=== PATIENT | female | born 1960 | race Caucasian/White ===

== ENCOUNTER 2024-03-16 09:47 | Outpatient (REF) | payer MEDICARE, MEDICAID, SELFPAY ==
[2024-03-18 16:51] LABS: Phenytoin - Free Level 2.2 ug/mL (1.0-2.5); Phenytoin - Percent Free 9.2 % (8.0-14.0); Phenytoin - Total 23.7 ug/mL (10.0-20.0)
== END 2024-03-16 09:48 | disposition home or self-care (01) ==
LOC: LAB 09:47
PROVIDERS: PCP Family Medicine; Visit Provider Family Medicine
DX: Z51.81 Encounter for therapeutic drug level monitoring (principal)
CPT/HCPCS: 36415; 80185; 80186

== ENCOUNTER 2024-05-15 21:51 | Emergency (ER) | payer MEDICARE, MEDICAID, SELFPAY ==
--- OUTSIDE RECORDS SUMMARY | 2024-05-15 21:53 | XMS_ITS | Clinical Summary ---
Author Organization [facility] Address [address] [place] [address] Care Team Providers Care Licensed Nurse Practitioner Name Role Phone Chinyere Thompson AuD Unavailable [phone] Arianna Pappas DO Primary Care Provider [phone] Allergies Active Allergy Reactions Criticality Noted Date Comments Amoxicillin-Pot Clavulanate Rash 04/07/19 13 Sulfamethoxazole-Trimethopri m Rash Medium 11/05/2020 Barbiturates *Unknown 06/02/2023 Etomidate *Unknown 06/02/2023 Ketamine *Unknown - Follow up needed 11/06/2008 Propofol Analogues *Unknown 06/18/2011 Carbinoxamine-Pseudoephedrin e *Unknown 11/06/2008 Sulfa (Sulfonamide Antibiotics) Rash 08/05/2021 Tetracycline *Unknown Medications nystatin (MYCOSTATIN) cream Apply topically to affected area(s) 2 times daily. 1 Tube 2 05/02/19 14 Active Diaper,Brief, Adult,Disposable Indications:MR (mental retardation), severe,Unspecifi ed urinary incontinence For home use. incontinence 80 Each 12/16/19 16 Active miscellaneous medical supply miscIndications: Bowel and bladder incontinence As directed. Baby wipes for incontinence-disp ense 2 packs per months 2 Units 11 10/12/19 19 Active PHENYTOIN ORAL DIVALPROEX 125 mg TAKE ONE CAPSULE BY MOUTH THREE TIMES A DAY 09/11/19 21 Active ibuprofen (ADVIL; MOTRIN) 200 mg tabletIndication s:Pain Take 1 Tablet (200 mg) by mouth every 4 hours if needed for Pain. 90 Tablet 1 12/28/19 23 Active acetaminophen (TYLENOL EXTRA STRGTH) 500 mg tabletIndication s:Pain TAKE TWO TABLETS BY MOUTH THREE TIMES DAILY. MAX ACETAMINOPHEN DOSE IS 4000MG PER 24 HOURS 180 Tablet 11 01/19/20 23 Active omeprazole (PRILOSEC) 40 mg Delayed-Release capsuleIndicatio ns:Helicobacter pylori gastritis,Gastro esophageal reflux disease with esophagitis without hemorrhage,Hiata l hernia TAKE ONE CAPSULE BY MOUTH ONCE DAILY BEFORE A MEAL 90 Capsule 3 02/17/20 23 Active docusate (COLACE) 100 mg capsuleIndicatio ns:Chronic constipation TAKE ONE CAPSULE (100 MG) BY MOUTH TWO TIMES DAILY. 180 Capsule 2 03/03/19 24 Active lactobacillus rhamnosus, GG, ([employer]) 10 billion cell -200 mg capsuleIndicatio ns:Recurrent UTI TAKE ONE CAPSULE BY MOUTH ONCE DAILY 90 Capsule 2 03/06/19 24 Active sennosides-docus ate (Stool Softener-Stimula nt Laxat) (8.6-50 mg) tabletIndication s:Chronic constipation TAKE TWO TABLETS BY MOUTH ONCE DAILY NEEDED FOR CONSTIPATION (HOLD FOR DIARRHEA) 180 Tablet 2 03/08/19 24 Active polyethylene glycoL (Gavilax) 17 gram/scoop powderIndication s:Chronic constipation ADMINISTER 1 SCOOP(17GM) VIA J-TUBE ONCE DAILY 1530 g 2 04/20/19 24 Active NITROFURANTOIN ORAL Take by mouth. Activ e Lactobacillus rhamnosus GG ([facility] [facility] ORAL) Take by mouth once daily. Active fluconazole (DIFLUCAN) 150 mg tablet Take 150 mg by mouth one time. Active ergocalciferol (VITAMIN D2; DRISDOL) 50,000 unit capsuleIndicatio ns:Vitamin D deficiency TAKE 1 CAPSULE BY MOUTH ONCE WEEKLY. 4 Capsule 2 06/29/19 24 Active simethicone chewable (Gas Relief 80, simethicone,) 80 mg chewable tabletIndication s:Helicobacter pylori gastritis CHEW AND SWALLOW ONE TABLET FOUR TIMES A DAY IF NEEDED FOR FLATULENCE 360 Tablet 1 08/24/19 24 Active phenytoin CHEW (DILANTIN) 50 mg tabletIndication s:Convulsions, unspecified convulsion type (HC) TAKE ONE TABLET BY MOUTH DAILY TAKE IN THE MORNING WITH A 100MG DOSE (TOTAL 150MG IN THE MORNING) 90 Tablet 09/14/19 24 Active phenytoin extended (DILANTIN) 100 mg ER capsuleIndicatio ns:Convulsions, unspecified convulsion type (HC) TAKE ONE CAPSULE BY MOUTH IN THE MORNING AND 2 CAPSULES EVERY EVENING 270 Capsule 09/14/19 24 Active cetirizine (ZYRTEC) 10 mg tabletIndication s:Rhinorrhea TAKE ONE TABLET BY MOUTH DAILY FOR RUNNY NOSE 30 Tablet 11 09/14/19 24 Active durable medical equipment (DME)Indications :Plantar fasciitis, left PLANTAR FASCIITIS NIGHT SPLINT, SMALL, REF: [phone] 09/14/19 24 Active Cranberry Extract 425 mg capIndications:R ecurrent UTI Take 1 Capsule by mouth two times daily. 180 Capsule 3 10/12/19 24 Active Additional Information Patient taking differently: 2 CapsuleOralDAILY, Reported on 03/06/2024 LORazepam (ATIVAN) 2 mg tabIndications:A nxiety,Active autistic disorder (HC) Take 1 tablet 1 hour before medical or dental appointments 2 Tablet 5 11/29/19 24 Active Diaper,Brief, Adult,Disposable Indications:Urin pretty incontinence, unspecified type For home use. 90 Each 3 02/17/20 24 Active busPIRone (BUSPAR) 5 mg tabletIndication s:Anxiety TAKE 1 TABLET BY MOUTH THREE TIMES DAILY 270 Tablet 1 03/30/19 25 Active divalproex sprinkles (DEPAKOTE SPRINKLES) 125 mg capsuleIndicatio ns:Impulse control disorder in adult TAKE 2 CAPSULES (250MG) BY MOUTH THREE TIMES DAILY 186 Capsule 11 04/02/19 25 Active risperiDONE (RISPERDAL) 0.5 mg tabletIndication s:Impulse control disorder in adult TAKE 1 TABLET BY MOUTH THREE TIMES DAILY 93 Tablet 11 04/02/19 25 Active Active Problems Problem Noted Date Diagnosed Date Controlled substance agreeme nt signed, By Chinyere Zavaleta MD, psychiatry on 09/17/2016 / Roseann Calderón LPN 03/05/2024 Overview (03/05/2024): Tardive dyskinesia 08/23/2019 Pure hypercholesterolemia 06/20/2019 Recurrent UTI 06/20/2019 Chronic constipation 06/20/2019 Bowel and bladder incontinence 10/11/2018 Other shelter (current) drug therapy 9 Vitamin D deficiency 11/22/2016 Iron deficiency anemia due to chronic blood loss 08/26/2016 Hiatal hernia 08/03/2016 Overview (08/03/2016): 6 cm on EGD 08/02/16 Unspecified urinary incontinence 12/16/2015 Neuroleptic-induced parkinsonism 08/03/2013 Left foot pain 11/04/2012 Overview (11/04/2012): 11/03/12 1057 XR FOOT 3 VIEWS LEFT Details Impression: Negative for acute bony abnormality. Hallux valgus and hallux rigidus are demonstrated. MR (mental retardation), severe 11/03/2012 Autism 11/03/2012 GERD (gastroesophageal reflux disease) 9 Periodontal disease 11/06/2008 Other convulsions 03/22/2007 Overview (03/22/2007): no seizure meds per family request Impulse control disorder in adult 03/22/2007 Overview (03/22/2007): disruptive behavior d/o Helicobacter pylori gastritis 03/22/2007 Overview (08/11/2016): Triple antibiotic - July 2016 Dysmenorrhea 03/22/2007 Resolved Problems Problem Noted Date Diagnosed Date Resolved Date Controlled substance agreement signed 09/16/2016 07/30/2021 Overview (09/16/2016): Signed 09/16/2016 Dr Chinyere Zavaleta Psychiatry Unspecified intellectual disabilities 03/22/2007 08/03/2013 Overview (03/22/2007): severe MR Encounters Date Type Department Care Team Description 03/29/2024 Refill [facility] [address] [facility] [place] [address] Chinyere Zavaleta MD Refill Request (Buspirone, Divalproex Sprinkles, Risperidone) 03/07/2024 Telephone [facility] [address] [place] [address] Chinyere Zavaleta MD EMILY 03/07/2024 Telephone [facility] [address] [place] [address] Chinyere Zavaleta MD Care Coordination 03/06/2024 9:45 AM PLANETARIUM TECHNICIAN Telemedicine [facility] [address] [place] [address] Chinyere Zavaleta MD Telehealth; Medication Management (Things have been going really good, one episode last night of agitation) 02/17/2024 1:20 PM PLANETARIUM TECHNICIAN Telemedicine [facility] [address] [place] [address] Arianna Pappas DO Telehealth; Medicare ANNUAL (subsequent) Visit (63 year old female) 02/17/2024 Telephone [facility] [address] [place] [address] Arianna Pappas DO Questions (Prefer Zoom meeting) from Last 3 Months Immunizations Immunization Administration Dates Next Due COVID-19 vaccine (Moderna 100mcg/0.5mL) EDEL ROA 01/15/2021,04/23/2020,03/26/2020 COVID-19 vaccine (Pfizer-Bio NTech 30mcg/0.3mL) 12YO+ STEVEN-SUCROSE EDEL ROA 08/11/2021 Influenza A (H1N1), Inactivated 03/17/2009 Influenza Virus, Unspecified 12/19/2017 Influenza, IIV3 (Age >=3 years) 01/05/2016 Influenza, IIV4 12/15/2022,,01/11/2019,2016 Influenza, IIV4 (=>6mos) MDV 12/12/2019,01/09/20 19 Influenza, Inactivated AIIV4 (Age 65+ Years) Preserv Free 12/23/2020 Influenza, Injectable, Mdck, Quadrivalent, W/preservative 12/19/2017 Influenza,CCIIV4 PRESERV FREE 12/19/2017 Td, Preservative Free (age > = 7 Years) 03/22/2007 Tdap 07/01/2021 Zoster (Shingrix-RZV, recombinant) 12/23/2020, Family History Medical History Relation Name Comments Good Health Father Good Health Mother Relation Name Status Comments Father Mother Social History Tobacco Use Types Packs/Day Years Used Date Smoking Tobacco: Never Smokeless Tobacco: Never Tobacco Cessation:Counseling Given: Yes Alcohol Use Standard Drinks/Week Comments No 0 (1 standard drink = 0.6 oz pur e alcohol) PHQ-2 Answer Date Recorded PHQ-2 TOTAL SCORE 0 03/06/2024 Social Connections Answer Date Recorded Frequency of Communication with Friends and Fami ly 0 03/29/2022 Financial Resource Strain Answer Date R ecorded Difficulty of Paying Living Expenses 3 03/29/2022 Difficulty of Paying Living Expenses Not on file 03/29/2022 Food Insecurity Answer Date Recorded Worried About Running Out of Food in the Last Ye ar 1 03/29/2022 Transportation Needs Answer Date Record ed Lack of Transportation (Medical) 1 03/29/2022 Housing Stability Answer Date Recorded Unable to Pay for Housing in the Last Year 1 03/29/2022 Comments No Sex and Gender Information Value Date Recorded Sex Assigned at Not on file Legal Sex Female 5:24 AM PLANETARIUM TECHNICIAN Gender Identity Not on file Sexual Orientation Not on file Occupation Industry Job Start Date Job End Date Not on file Not on file Not on file Not on file Obstetrics History Para Term AB IAB SAB Ectopic Multiple Livin g Live Births 0 0 0 0 0 0 0 0 0 0 Last Filed Vital Signs Vital Sign Reading Time Taken Comments Blood Pressure 115/73 02/17/2024 1:22 PM PLANETARIUM TECHNICIAN Pulse 67 02/17/2024 1:22 PM PLANETARIUM TECHNICIAN Temperature 36.5 C (97.7 F) 02/17/2024 1:22 PM PLANETARIUM TECHNICIAN Respiratory Rate 16 12/03/2017 3:46 PM CDT Oxygen Saturation 98% 02/17/2024 1:22 PM PLANETARIUM TECHNICIAN Inhaled Oxygen Concentration - - Weight 66.7 kg (147 lb) 02/17/2024 1:22 PM PLANETARIUM TECHNICIAN Height 155 cm (5' 1.02) 02/14/2023 9:59 AM PLANETARIUM TECHNICIAN Body Mass Index 27.75 02/14/2023 9:59 AM PLANETARIUM TECHNICIAN Plan of Treatment Upcoming Encounters Date Type Department Care Team (Late st Contact Info) Description 09/04/2024 10:45 AM CDT Telemedicine [facility] [address] [place] [address] Chinyere Zavaleta MD [address] [place] [address] Health Maintenance Due Date Last Done Comments Pneumococcal series for age 50+ (1 of 1 - PCV) 2010 Mammogram for age 45-75 04/04/2013 04/04/2012 Pap test for age 21-65 07/15/2014 07/16/2011 Fecal testing non-DNA (FIT,FOBT,iFOBT) for age 45-75 10/10/2015 10/09/2014 RSV vaccine for adults or (1 - Risk 60-74 years 1-dose series) 2020 COVID-19 vaccine series ( season) 2023 12/15/2022, 08/11/2021, 01/15/2021, Additional history exists Influenza Vaccine (#1) 2023 , 12/23/2021, 12/23/2020, Additional history exists BMI (ht and wt on same day) for age 18+ 02/15/2024 02/14/2023, 07/14/2022, 04/12/2022, Additional history exists Depression screening for age 12+ 03/07/2025 03/07/2024, 03/07/2024, 03/06/2024, Additional history exists Lipids for age 45-75 01/23/2029 01/24/2024, 06/14/2023, 02/09/2022, Additional history exists Tetanus booster 07/02/2031 07/01/2021, 03/22/2007 Zoster (shingles) series for age 50+ Completed 12/23/2020, 09/12/2020 Tdap Completed 07/01/2021 HIV for age 15-65 Completed 04/12/2023 Hepatitis C screening for ag e 18-79 Completed 04/12/2023 Procedures Procedure Name Priority Date/Time Associated Diagnosis Comments LIPID PANEL W REFLEX MEASURED LDL Routine 01/24/2024 11:43 AM PLANETARIUM TECHNICIAN Medication monitoring encounter Mixed hyperlipidemia ANTI HIV 1/2 Routine 04/12/2023 10:44 AM PLANETARIUM TECHNICIAN Screening for HIV (human immunodeficiency virus) ANTI HCV Routine 04/12/2023 10:44 AM PLANETARIUM TECHNICIAN Screening for HIV (human immunodeficiency virus) OCCULT BLOOD IFOBT STOOL Routine 10/09/2014 1:43 PM CDT Screening for colorectal cancer GYNECOLOGICAL PANEL Timed 07/16/2011 8 :26 AM CDT from Last 3 Months or Most Recently Relevant to Health Maintenance Results * (ABNORMAL) LIPID PANEL W REFLEX MEASURED LDL (01/24/2024 11:43 AM PLANETARIUM TECHNICIAN) CHOLESTEROL, TOTAL 266(H) <200 mg/dL [facility] HDL CHOLESTEROL 56 > OR = 50 mg/dL [facility] TRIGLYCERIDES 94 <150 mg/dL [facility] LDL-CHOLESTEROL 189(H) mg/dL (calc) [facility] Comment: Reference range: <100 Desirable range <100 mg/dL for primary prevention; <70 mg/dL for patients with CHD or diabetic patients with > or = 2 CHD risk factors. LDL-C is now calculated using the Jeffrey-Heri calculation, which is a validated novel method providing better accuracy than the Friedewald equation in the estimation of LDL-C. Jeffrey WHITE et al. RAEGAN. 2013;310(19): 6877-2161 (http://education.QD Vision.BitTorrent/faq/NNZ443) CHOL/HDLC RATIO 4.8 <5.0 (calc) [facility] NON HDL CHOLESTEROL 210(H) <130 mg/dL (calc) [facility] Comment: For patients with diabetes plus 1 major ASCVD risk factor, treating to a non-HDL-C goal of <100 mg/dL (LDL-C of <70 mg/dL) is considered a therapeutic option. Blood BLOOD SPECIMEN / Unknown 01/24/2024 11:43 AM PLANETARIUM TECHNICIAN 01/24/2024 11:46 AM PLANETARIUM TECHNICIAN Narrative [facility] - 01/25/2024 3:51 AM PLANETARIUM TECHNICIAN FASTING:YES FASTING: YES Arianna Pappas DO CHEMISTRY Final Result Performing Organization Address [facility]/ZIP Co de Phone Number [facility] [address] [place] [address], [facility] [address] [place] [address] * ANTI HCV (04/12/2023 10:44 AM PLANETARIUM TECHNICIAN) Pathologist [facility] HEPATITIS C ANTIBODY Non-Reacti ve Non-React katelyn 04/12/2023 10:40 PM PLANETARIUM TECHNICIAN [facility] Comment:Please note, per www .CDC.gov: If a patient is known to be at high risk of HCV infection, or is symptomatic, and the physician's suspicion of HCV infection is high, HCV RNA testing is often employed and is of diagnostic value, even after an initial negative anti-HCV test result. Blood BLOOD SPECIMEN / Unknown Butterfly / Unknown 04/12/2023 10:44 AM PLANETARIUM TECHNICIAN 04/12/2023 10:45 AM PLANETARIUM TECHNICIAN Arianna Metzjennifer CASIANO SEND OUTS Final Result Performing Organization Address [facility] Co de Phone Number [facility] [address] [address], * ANTI HIV 1/2 (04/12/2023 10:44 AM PLANETARIUM TECHNICIAN) Pathologist [facility] HIV-1/HIV-2 SCREEN Non-Reacti ve Non-Reacti ve 04/12/2023 10:41 PM PLANETARIUM TECHNICIAN [facility] Comment:HIV-1 p24 and HIV-1/ HIV-2 Ab Not Detected. Blood BLOOD SPECIMEN / Unknown Butterfly / Unknown 04/12/2023 10:44 AM PLANETARIUM TECHNICIAN 04/12/2023 10:45 AM PLANETARIUM TECHNICIAN Arianna Metzjennifer CASIANO SEND OUTS Final Result [facility] [address] [place] [address], * OCCULT BLOOD IFOBT STOOL (10/09/2014 1:43 PM CDT) STOOL BLOOD ,IFOBT Negative Negative, Invalid 10/15/2014 4:30 PM CDT [facility] Stool specimen (specimen) STOOL SPECIMEN / Unknown Non-Blood / Unknown 10/09/2014 1:43 PM CDT 10/15/2014 1:43 PM CDT Gordon Thorne MD LABORATORY Final Re sult [facility] [address] [place] [address], * GYNECOLOGICAL PANEL (07/16/2011 8:26 AM CDT) CYTOLOGY CYTOPATHOLOGY REPORT [facility] Status: Final Status [id number] CLINICAL INFORMATION Last Pap Date :2008 Hormone Usage :Depo Menstrual Status :menopause? SPECIMEN SOURCE :Cervical/vaginal ThinPrep Vial, screening SPECIMEN ADEQUACY :Satisfactory for evaluation Endocervical component present. INTERPRETATION/RES ULT Negative for intraepithelial lesion or malignancy (NIL) EDUCATIONAL NOTES AND SUGGESTIONS For technical reasons this ThinPrep Pap could not be screened by the Supervisor Logging so it was manually screened. Cytology 1st Screener :napoleon Signed by :napoleon This specimen was screened by the FDA approved ThinPrep Imaging System and manually reviewed. NOTE: The Pap test is a screening technique, not a diagnostic procedure. It is used primarily to screen for squamous cancers and precursor lesions. Published studies have shown that it is subject to both false negative and false positive results. The pap test should not be used as the sole means to diagnose or exclude pre-malignant and malignant lesions. COLLECTED:07/16/11 ACCESSIONED: 07/19/11 SIGNED: 07/22/11 [facility] PAP [place] CODE NIL [facility] 07/16/2011 8:26 AM CDT 07/16/2011 6:36 PM CDT us Tigre Claudio MD PATHOLOGY/CYTOLOGY Final Re sult [facility] INTERNAL ZIP [address] [place] [address] from Last 3 Months or Most Recently Relevant to Health Maintenance Insurance MEDICARE PB ONLY MEDICAID MEDICARE PART B HB ONLY MEDICARE PART A HB ONLY MEDICARE PART A HB ONLY Member Subscriber Plan / Payer (Ef fective 1995-Present) Name:Kasie Benjamin Member ID:[id number] Relation to Subscriber:Self Name:Ruchi Benjaminmariah Bar Subscriber ID:[id number] Payer ID:Not on file Group ID:Not on file Type:Not on file Address: ATTN: CLAIMS [address] [place] [address] [place] [address] MEDICARE PART B HB ONLY Member Subscriber Plan / Payer (Ef fective 1995-Present) Name:Kasie Benjamin Member ID:[id number] Relation to Subscriber:Self Name:Kasie Benjamin Subscriber ID:[id number] Payer ID:Not on file Group ID:Not on file Type:Not on file Address: ATTN: CLAIMS [address] [place] [address] [place] [address] MEDICAID Advance Directives Documents on File Type Date Recorded Patient Supervisor Chlorine Liquefaction Expl anation POLST 03/06/2024 4:35 PM POLST 02/17/2024 POLST 08/12/2023 024 * Full Code (Latest Code Status on File) Date Activated Date Inactivated Comments 11/01/2012 6:48 PM 11/06/2012 3:52 PM Care Teams Licensed Nurse Practitioner Relationship Specialty Start Date End Date Arianna Pappas DO [address] [place] [address] PCP - General Family Practice 07/27/22 Chinyere Thompson AuD Audiology 04/14/11
[2024-05-15 21:57] VITALS: PULSE 77; RESP 18; O2SAT 93; BMI 31.9
--- NOTE | 2024-05-15 22:30 | ED_ITS ---
HPI - Extremity Injury (Lower) General Time Seen by Provider: 22:30 Date Seen: 05/15/24 Chief Complaint: Extremity Pain/Injury, Lower Stated Complaint: Possible broken right foot, fall Time Seen by Provider: 05/15/24 22:30 Source: family, RN notes reviewed and old records reviewed Mode of arrival: wheelchair Limitations: no limitations History of Present Illness HPI Narrative: Kasie is a 64-year-old resident of [facility] who fell earlier today- staff describes as is a very slow fall but had some bruising noted on her right small toe and the top of her foot. They have been monitoring her today. She does ambulate with assistance. They note now that the toe has become much more swollen and bruised and the bruising is now extending up onto the foot. Kasie comes here with the assistance of 2 staff members from [facility]. Kasie herself is essentially nonverbal. She has not been crying or acting out. She does have a tendency to hit and thus she was treated with Ativan prior to arrival here. They deny that she hit her head or had any other injury. They do warn need to stay out of hitting distance from her. Related Data Home Medications ?Medication ?Instructions ?Recorded ?Confirmed acetaminophen 500 mg tablet mg PO 05/15/24 buspirone 5 mg tablet 5 mg PO 3XD 05/15/24 05/15/24 cetirizine 10 mg tablet 10 mg PO DAILY 05/15/24 05/15/24 divalproex 250 mg tablet,delayed PO 05/15/24 release ergocalciferol (vitamin D2) 1,250 PO 05/15/24 mcg (50,000 unit) capsule lorazepam 1 mg tablet mg PO 05/15/24 omeprazole 40 mg capsule,delayed 40 mg PO DAILY 05/15/24 05/15/24 release phenytoin 50 mg chewable tablet 100 mg PO DAILY 05/15/24 05/15/24 risperidone 0.5 mg tablet PO 05/15/24 Previous Rx's ?Medication ?Instructions ?Recorded Adult Wheelchair #1 ea 05/15/24 Allergies Allergy/AdvReac Type Severity Reaction Status Date / Time pseudoephedrine Allergy Verified 05/15/24 22:01 tetracycline Allergy Verified 05/15/24 22:01 etomidate AdvReac Verified 05/15/24 22:01 ketamine AdvReac Verified 05/15/24 22:01 propofol AdvReac Verified 05/15/24 22:01 sulfamethoxazole (From AdvReac Verified 05/15/24 22:01 Bactrim) trimethoprim (From Bactrim) AdvReac Verified 05/15/24 22:01 Review of Systems Status of ROS: Reports: 6 or more systems reviewed and unremarkable except as noted in History and below [facility] Medical History (Updated 05/15/24 @ 23:54 by Aleida Miller MD) Severe developmental delay ?R62.50 - Unspecified lack of expected normal physiological development in childhood (ICD-10) Autism ?F84.0 - Autistic disorder (ICD-10) Seizure ?R56.9 - Unspecified convulsions (ICD-10) Social History Smoking Status: Never smoker How often do you have a drink containing alcohol: never AUDIT-C Alcohol total score: 0 Non-prescribed substance use: denies use Exam Narrative: Exam Narrative: Kasie is sitting in a wheelchair. When I 1st arrived she is smiling with her teammates. She is nonverbal. She is breathing without difficulty. I do not note any bruising about her face. Examination of the right foot shows that her 5th toe is ecchymotic and slightly swollen. I do palpate gently and she does not appear to draw back. The bruising extends up onto the dorsal lateral aspect of her foot. Ankle itself does not show any obvious abnormality and palpation does not yield any tenderness. Const: Vital Signs, click to edit/add: Vital Signs - 24 hr 05/15/24 21:57 05/16/24 00:13 05/16/24 00:15 Temperature 98.5 F 98.5 F Pulse Rate [Pulse Oximeter] 77 74 74 Respiratory Rate 18 18 18 Blood Pressure [Ri ght Upper Arm] 115/74 115/74 Pulse Oximetry 93 93 Oxygen Delivery Me thod Room Air Room Air Documenting provider has reviewed patient's vital signs: yes Course Course ED Course: At this time given linens nonverbal status it is very hard to trust in exam that is reassuring. I do recommend x-rays of the right ankle and right foot and staff agrees. Because she of anxiety we will have x-ray come and do the films in the room rather than bringing her to another room. Vital Signs Vital signs: Initial Vital Signs Pulse Rate 77 05/15/24 21:57 Respiratory Rate 18 05/15/24 21:57 Pulse Oximetry 93 05/15/24 21:57 Oxygen Delivery Method Room Air 05/15/24 21:57 Vital Signs Pulse Rate 77 05/15/24 21:57 Respiratory Rate 18 05/15/24 21:57 Pulse Oximetry 93 05/15/24 21:57 Oxygen Delivery Method Room Air 05/15/24 21:57 Temperature 98.5 F 05/16/24 00:15 Pulse Rate 74 05/16/24 00:15 Respiratory Rate 18 05/16/24 00:15 Blood Pressure 115/74 05/16/24 00:15 Pulse Oximetry 93 05/16/24 00:13 Oxygen Delivery Method Room Air 05/16/24 00:13 MDM - Extremity Injury (Lower) MDM Narrative Medical decision making narrative: 1. Right 5th toe fracture-fracture does extend into the joint space and thus I do recommend follow-up with orthopedics for to ensure appropriate healing. At this time will place her in a cam boot so that she has support for transfers. I have written a prescription for a wheelchair so that she does not walk on this injury. Recommend ibuprofen or Tylenol as needed for discomfort. Icing would be helpful if she will tolerate as well. 2. Disposition-home at this time. No other reported injury per staff. Return as needed for worsening symptoms. Addendum: Staff members at [facility] want me to document that Kasie is DNR DNI according to the records and they wanted to have this updated. Medical Records Attestation: I reviewed the patient's medical records. Imaging Data Ankle x-ray: Attestation: I have reviewed the pertinent imaging results. My impression: No obvious fractures Radiologist's impression: Bones: Alignment is normal. No acute fracture or suspicious bone lesion. Tiny posterior calcaneal enthesophyte. Joint spaces: Unremarkable. Soft tissues: Unremarkable. Impression: No evidence of an acute bony abnormality. Foot x-ray: Attestation: I have reviewed the pertinent imaging results. Radiologist's impression: Bones: Acute, slightly displaced fracture of the base of the small toe proximal phalanx with extension into the 5th metatarsophalangeal joint. No other fracture visualized. Alignment is otherwise normal. No suspicious osseous lesion. Joint spaces: Otherwise, unremarkable. Soft tissues: Unremarkable. Impression: Acute, slightly displaced fracture of the base of the small toe proximal phalanx with extension into the 5th metatarsophalangeal joint. Discharge Plan Discharge Clinical Impression: Fracture of toe Qualifiers: Encounter type: initial encounter Toe: lesser toe Fracture type: closed Phalanx: proximal Fracture alignment: displaced Laterality: right Qualified Code(s): S92.511A - Displaced fracture of proximal phalanx of right lesser toe(s), initial encounter for closed fracture Patient Disposition: Home w/ Parent or Adult Condition: Unchanged Additional Instructions: Recommend the use of a walking boot which we will provide for you tonight on the right foot. May walk a few steps and transfer. Will also give a prescription for wheelchair to assist with this. Of healing. I do recommend follow-up with orthopedics as the fracture does extend into the joint. Ibuprofen or Tylenol as needed for discomfort. Return as needed for worsening symptoms. Prescriptions: New (DME) Adult Wheelchair Misc See Rx Instructions .ROUTE Qty: 1 0RF Rx Instructions: As directed No Action buspirone 5 mg tablet 5 mg PO 3XD divalproex 250 mg tablet,delayed release (DR/EC) PO cetirizine 10 mg tablet 10 mg PO DAILY phenytoin 50 mg tablet,chewable 100 mg PO DAILY omeprazole 40 mg capsule,delayed release(DR/EC) 40 mg PO DAILY acetaminophen 500 mg tablet PO ergocalciferol (vitamin D2) 1,250 mcg (50,000 unit) capsule PO lorazepam 1 mg tablet PO risperidone 0.5 mg tablet PO Follow Up/Referrals: Gordon Thorne MD [Referring] - Stand Alone Forms: [facility] Info Instructions
--- NOTE | 2024-05-15 22:34 | CRLHL7_ITS ---
For Patients: As a result of the Cures Act, medical imaging exams and procedure reports are released immediately into your electronic medical record. You may view this report before your referring provider. If you have questions, please contact your health care provider. Indication: Fall this morning, foot injury. Technique: Right ankle 2 views. Comparison: None. Findings: Bones: Alignment is normal. No acute fracture or suspicious bone lesion. Tiny posterior calcaneal enthesophyte. Joint spaces: Unremarkable. Soft tissues: Unremarkable. Impression: No evidence of an acute bony abnormality. Dictated by Billy Amos MD @ 05/15/2024 11:42:04 PM (Electronically Signed)
--- NOTE | 2024-05-15 22:34 | CRLHL7_ITS ---
For Patients: As a result of the Century Cures Act, medical imaging exams and procedure reports are released immediately into your electronic medical record. You may view this report before your referring provider. If you have questions, please contact your health care provider. Indication: Lateral distal foot bruising, fall this morning. Technique: Right foot 2 views. Comparison: None. Findings: Bones: Acute, slightly displaced fracture of the base of the small toe proximal phalanx with extension into the 5th metatarsophalangeal joint. No other fracture visualized. Alignment is otherwise normal. No suspicious osseous lesion. Joint spaces: Otherwise, unremarkable. Soft tissues: Unremarkable. Impression: Acute, slightly displaced fracture of the base of the small toe proximal phalanx with extension into the 5th metatarsophalangeal joint. Dictated by Billy Amos MD @ 05/15/2024 11:40:51 PM (Electronically Signed)
--- OUTSIDE RECORDS SUMMARY | 2024-05-15 22:52 | XMS_ITS | Clinical Summary ---
Author Organization [facility] Address [address] [place] [address] Care Team Providers Care Metal Hanging Supervisor Name Role Phone Chinyere Thompson AuD Unavailable [phone] Arianna Pappas DO Primary Care Provider [phone] Allergies Active Allergy Reactions Criticality Noted Date [...] 2 03/03/19 24 Active lactobacillus rhamnosus, GG, ([employer]) 10 billion cell -200 mg capsuleIndicatio [...] by mouth. Activ e Lactobacillus rhamnosus GG ([employer]) Take by mouth once daily. Active [...] left PLANTAR FASCIITIS NIGHT SPLINT, SMALL, REF: [phone] 09/14/19 24 Active Cranberry Extract 425 mg [...] 06/20/2019 Bowel and bladder incontinence 10/11/2018 Other senior care (current) drug therapy 9 Vitamin D deficiency [...] Type Department Care Team Description 03/29/2024 Refill [facility] [address] [place] [address] Chinyere Zavaleta MD Refill Request (Buspirone, Divalproex Sprinkles, Risperidone) 03/07/2024 Telephone [facility] [address] [place] [address] Chinyere Zavaleta MD EMILY 03/07/2024 Telephone [facility] [address] [place] [address] Chinyere Zavaleta MD Care Coordination 03/06/2024 9:45 AM ANALYTICAL CHEMIST Telemedicine [facility] [address] [place] [address] Chinyere Zavaleta MD Telehealth; Medication Management (Things have been going really good, one episode last night of agitation) 02/17/2024 1:20 PM ANALYTICAL CHEMIST Telemedicine [facility] [address] [place] [address] Arianna Pappas DO Telehealth; Medicare ANNUAL (subsequent) Visit (63 year old female) 02/17/2024 Telephone [facility] [address] [place] [address] Arianna Pappas DO Questions (Prefer Zoom meeting) [...] on file Legal Sex Female 5:24 AM ANALYTICAL CHEMIST Gender Identity Not on file Sexual Orientation [...] Comments Blood Pressure 115/73 02/17/2024 1:22 PM ANALYTICAL CHEMIST Pulse 67 02/17/2024 1:22 PM ANALYTICAL CHEMIST Temperature 36.5 C (97.7 F) 02/17/2024 1:22 PM ANALYTICAL CHEMIST Respiratory Rate 16 12/03/2017 3:46 PM CDT Oxygen Saturation 98% 02/17/2024 1:22 PM ANALYTICAL CHEMIST Inhaled Oxygen Concentration - - Weight 66.7 kg (147 lb) 02/17/2024 1:22 PM ANALYTICAL CHEMIST Height 155 cm (5' 1.02) 02/14/2023 9:59 AM ANALYTICAL CHEMIST Body Mass Index 27.75 02/14/2023 9:59 AM ANALYTICAL CHEMIST Plan of Treatment Upcoming Encounters Date Type Department Care Team (Late st Contact Info) Description 09/04/2024 10:45 AM CDT Telemedicine [facility] [address] [place] [address] Chinyere Zavaleta MD [address] [place] [address] Health Maintenance Due Date Last Done Comments [...] REFLEX MEASURED LDL Routine 01/24/2024 11:43 AM ANALYTICAL CHEMIST Medication monitoring encounter Mixed hyperlipidemia ANTI HIV 1/2 Routine 04/12/2023 10:44 AM ANALYTICAL CHEMIST Screening for HIV (human immunodeficiency virus) ANTI HCV Routine 04/12/2023 10:44 AM ANALYTICAL CHEMIST Screening for HIV (human immunodeficiency virus) OCCULT BLOOD IFOBT STOOL Routine 10/09/2014 1:43 PM CDT Screening for colorectal cancer GYNECOLOGICAL PANEL Timed 07/16/2011 8 :26 AM CDT from Last 3 Months or Most Recently Relevant to Health Maintenance Results * (ABNORMAL) LIPID PANEL W REFLEX MEASURED LDL (01/24/2024 11:43 AM ANALYTICAL CHEMIST) CHOLESTEROL, TOTAL 266(H) <200 mg/dL [facility] HDL CHOLESTEROL 56 > OR = 50 mg/dL [facility] TRIGLYCERIDES 94 <150 mg/dL [facility] LDL-CHOLESTEROL 189(H) mg/dL (calc) [facility] Comment: Reference range: <100 Desirable range <100 mg/dL for primary prevention; <70 mg/dL for patients with CHD or diabetic patients with > or = 2 CHD risk factors. LDL-C is now calculated using the Jeffrey-Heri calculation, which is a validated novel method providing better accuracy than the Friedewald equation in the estimation of LDL-C. Jeffrey WHITE et al. RAEGAN. 2013;310(19): 4304-2747 (http://education.[employer]/faq/BAX790) CHOL/HDLC RATIO 4.8 <5.0 (calc) [facility] NON HDL CHOLESTEROL 210(H) <130 mg/dL (calc) [facility] Comment: For patients with diabetes plus 1 major ASCVD risk factor, treating to a non-HDL-C goal of <100 mg/dL (LDL-C of <70 mg/dL) is considered a therapeutic option. Blood BLOOD SPECIMEN / Unknown 01/24/2024 11:43 AM ANALYTICAL CHEMIST 01/24/2024 11:46 AM ANALYTICAL CHEMIST Narrative [facility] - 01/25/2024 3:51 AM ANALYTICAL CHEMIST FASTING:YES FASTING: YES Arianna Pappas DO CHEMISTRY Final Result Performing Organization Address [facility]/ZIP Co de Phone Number [facility] [address] [place] [address], [facility] [address] [place] [address] * ANTI HCV (04/12/2023 10:44 AM ANALYTICAL CHEMIST) Pathologist [facility] HEPATITIS C ANTIBODY Non-Reacti ve Non-React katelyn 04/12/2023 10:40 PM ANALYTICAL CHEMIST [facility] Comment:Please note, per www .CDC.gov: If a patient is known to be at high risk of HCV infection, or is symptomatic, and the physician's suspicion of HCV infection is high, HCV RNA testing is often employed and is of diagnostic value, even after an initial negative anti-HCV test result. Blood BLOOD SPECIMEN / Unknown Butterfly / Unknown 04/12/2023 10:44 AM ANALYTICAL CHEMIST 04/12/2023 10:45 AM ANALYTICAL CHEMIST Arianna Metzjennifer CASIANO SEND OUTS Final Result Performing Organization Address [facility] Co de Phone Number [facility] [address] [address], * ANTI HIV 1/2 (04/12/2023 10:44 AM ANALYTICAL CHEMIST) Pathologist [facility] HIV-1/HIV-2 SCREEN Non-Reacti ve Non-Reacti ve 04/12/2023 10:41 PM ANALYTICAL CHEMIST [facility] Comment:HIV-1 p24 and HIV-1/ HIV-2 Ab Not Detected. Blood BLOOD SPECIMEN / Unknown Butterfly / Unknown 04/12/2023 10:44 AM ANALYTICAL CHEMIST 04/12/2023 10:45 AM ANALYTICAL CHEMIST Arianna Metzjennifer CASIANO SEND OUTS Final Result [facility] [address] [place] [address], * OCCULT BLOOD IFOBT STOOL (10/09/2014 1:43 PM CDT) STOOL BLOOD ,IFOBT Negative Negative, Invalid 10/15/2014 4:30 PM CDT [facility] Stool specimen (specimen) STOOL SPECIMEN / Unknown Non-Blood / Unknown 10/09/2014 1:43 PM CDT 10/15/2014 1:43 PM CDT Gordon Thorne MD LABORATORY Final Re sult [facility] [address] [place] [address], * GYNECOLOGICAL PANEL (07/16/2011 8:26 AM CDT) CYTOLOGY CYTOPATHOLOGY REPORT [facility] Status: Final Status [id number] CLINICAL INFORMATION Last Pap Date :2008 Hormone Usage :Depo Menstrual Status :menopause? SPECIMEN SOURCE :Cervical/vaginal ThinPrep Vial, screening SPECIMEN ADEQUACY :Satisfactory for evaluation Endocervical component present. INTERPRETATION/RES ULT Negative for intraepithelial lesion or malignancy (NIL) EDUCATIONAL NOTES AND SUGGESTIONS For technical reasons this ThinPrep Pap could not be screened by the Detention Officer so it was manually screened. Cytology 1st [...] malignant lesions. COLLECTED:07/16/11 ACCESSIONED: 07/19/11 SIGNED: 07/22/11 [facility] [place] [facility] 07/16/2011 8:26 AM CDT 07/16/2011 6:36 PM CDT us Tigre Claudio MD PATHOLOGY/CYTOLOGY Final Re sult [facility] INTERNAL ZIP [address] [place] [address] from Last 3 Months or Most Recently Relevant to Health Maintenance Insurance MEDICARE PB ONLY MEDICAID MEDICARE PART B HB ONLY MEDICARE PART A HB ONLY MEDICARE PART A HB ONLY Member Subscriber Plan / Payer (Ef fective 1995-Present) Name:Kasie Benjamin Member ID:[id number] Relation to Subscriber:Self Name:Ruchi Benjaminmariah Bar Subscriber ID:[id number] Payer ID:Not on file Group ID:Not on file Type:Not on file Address: ATTN: CLAIMS [address] [place], [place] [address] [place] [address] MEDICARE PART B HB ONLY Member Subscriber Plan / Payer (Ef fective 1995-Present) Name:Kasie Benjamin Member ID:[id number] Relation to Subscriber:Self Name:Kasie Benjamin Subscriber ID:[id number] Payer ID:Not on file Group ID:Not on file Type:Not on file Address: ATTN: CLAIMS [address] [place], [place] [address] [place] [address] MEDICAID Advance Directives Documents on File Type Date Recorded 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
[2024-05-16 00:13] VITALS: BP 115/74; PULSE 74; RESP 18; TEMP 36.9; O2SAT 93
[2024-05-16 00:15] VITALS: BP 115/74; PULSE 74; RESP 18; TEMP 36.9
== END 2024-05-16 00:15 | disposition home or self-care (01) ==
PROVIDERS: Emergency Provider Family Medicine; PCP Family Medicine
DX: S92.511A Displaced fracture of proximal phalanx of right lesser toe(s), initial encounter for closed fracture (principal); W22.8XXA Striking against or struck by other objects, initial encounter
CPT/HCPCS: 73600; 73620; 99283; 99284

== ENCOUNTER 2024-10-05 10:44 | Outpatient (CLI) | payer MEDICARE, MEDICAID, SELFPAY ==
--- NOTE | 2024-10-05 12:26 | P.ANES_ITS ---
Anesthesia Charges Start Date/Time Anesthesia Start Date: 10/05/24 Anesthesia Start Time: 11:59 Stop Date/Time Anesthesia Stop Date: 10/05/24 Anesthesia Stop Time: 12:25 Coding CPT Codes CPT Codes: ANES UPR GI NDSC PX NOS - 47390 ([id number]) P3 - PATIENT W/SEVERE SYS DISEASE, QK - BEAD INSPECTOR 2-4 CNCRNT ANES PROC, QX - WOODEN TANK ERECTOR SVC W/ MD MED DIRECTION
--- NOTE | 2024-10-05 12:26 | W.ANESCHARGE ---
Anesthesia Charges Start Date/Time Anesthesia Start Date: 10/05/24 Anesthesia Start Time: 11:59 Stop Date/Time Anesthesia Stop Date: 10/05/24 Anesthesia Stop Time: 12:25 Coding CPT Codes CPT Codes: ANES UPR GI NDSC PX NOS - 40348 ([id number]) P3 - PATIENT W/SEVERE SYS DISEASE, QK - ORGANIZATIONAL EFFECTIVENESS DIRECTOR 2-4 CNCRNT ANES PROC, QX - ALBERENE STONE SETTER SVC W/ MD MED DIRECTION
--- NOTE | 2024-10-05 12:27 | P.ANES_ITS ---
Anesthesia Charges Start Date/Time Anesthesia Start Date: 10/05/24 Anesthesia Start Time: 11:59 Stop Date/Time Anesthesia Stop Date: 10/05/24 Anesthesia Stop Time: 12:25 Coding CPT Codes CPT Codes: ANES UPR GI NDSC PX NOS - 87903 ([id number]) P3 - PATIENT W/SEVERE SYS DISEASE, QX - PULL OVER SVC W/ MD MED DIRECTION, QK - GLOBE CHANGER 2-4 CNCRNT ANES PROC
--- NOTE | 2024-10-05 12:27 | W.ANESCHARGE ---
Anesthesia Charges Start Date/Time Anesthesia Start Date: 10/05/24 Anesthesia Start Time: 11:59 Stop Date/Time Anesthesia Stop Date: 10/05/24 Anesthesia Stop Time: 12:25 Coding CPT Codes CPT Codes: ANES UPR GI NDSC PX NOS - 47739 ([id number]) P3 - PATIENT W/SEVERE SYS DISEASE, QX - AIRCRAFT STRESS ANALYST SVC W/ MD MED DIRECTION, QK - GUILLOTINE OPERATOR 2-4 CNCRNT ANES PROC
== END 2024-10-05 10:45 | disposition home or self-care (01) ==
PROVIDERS: PCP Family Medicine; Visit Provider Internal Medicine Gastroenterology
DX: D50.9 Iron deficiency anemia, unspecified (principal); K44.9 Diaphragmatic hernia without obstruction or gangrene; K31.7 Polyp of stomach and duodenum
CPT/HCPCS: 00731; 43239; 43251; 88305; J2250; J3010

== ENCOUNTER 2024-11-18 11:05 | Outpatient (CLI) | payer MEDICARE, MEDICAID, SELFPAY | END 2024-11-18 11:06 | disposition home or self-care (01) | LOC: AMB 11-19 14:07 | PROVIDERS: PCP Family Medicine; Visit Provider Emergency Medicine | DX: R09.02 Hypoxemia (principal) | CPT/HCPCS: A0998 ==

== ENCOUNTER 2024-11-22 14:14 | Outpatient (CLI) | payer MEDICARE, MEDICAID, SELFPAY | END 2024-11-22 14:15 | disposition home or self-care (01) | LOC: AMB 11-23 12:01 | PROVIDERS: PCP Family Medicine; Visit Provider Emergency Medicine Emergency Medical Services | DX: R06.03 Acute respiratory distress (principal) | CPT/HCPCS: A0998 ==

== ENCOUNTER 2025-01-22 09:40 | Emergency (ER) | payer MEDICARE, MEDICAID, SELFPAY ==
--- OUTSIDE RECORDS SUMMARY | 2025-01-22 09:45 | XMS_ITS | Clinical Summary ---
Author Organization [facility] Address [address] [place] [address] Care Team Providers Care Database Management Specialist Name Role Phone Chinyere Thompson Linus Unavailable [phone] Arianna Pappas DO Primary Care Provider Carmelita Neri DEPUTY DIRECTOR OF PUBLIC WORKS Unavailable Cassi Lynn MD Unavailable [phone] Allergies Active Allergy Reactions Criticality Noted Date Comments Amoxicillin-Pot Clavulanate Rash 04/07/19 13 Sulfamethoxazole-Trimethoprim Rash Medium 2020 Barbiturates *Unknown 06/02/2023 Etomidate *Unknown 06/02/2023 Ketamine *Unknown - Follow up needed 11/06/2008 Ketamine Other - Describe In Comment Field 05/15/2024 Propofol Other - Describe In Comment Field 05/15/2024 Propofol Analogues *Unknown 06/18/2011 Pseudoephedrine Other - Describe In Comment Field 05/15/2024 Carbinoxamine-Pseudoephedrine *Unknown 2008 Sulfa (Sulfonamide Antibiotics) Rash 08/05/2021 Sulfamethoxazole Other - Describe In Comment Field 05/15/2024 Tetracycline *Unknown Trimethoprim Other - Describe In Comment Field 05/15/2024 Medications nystatin (MYCOSTATIN) cream Apply topically to affected area(s) 2 times daily. 1 Tube 2 014 Active Diaper,Brief, Adult,Disposabl eIndications:MR (mental retardation), severe,Unspecif ied urinary incontinence For home use. incontinence 80 Each 016 Active miscellaneous medical supply miscIndications :Bowel and bladder incontinence As directed. Baby wipes for incontinence-dis pense 2 packs per months 2 Units 11 019 Active PHENYTOIN ORAL DIVALPROEX 125 mg TAKE ONE CAPSULE BY MOUTH THREE TIMES A DAY 021 Active ibuprofen (ADVIL; MOTRIN) 200 mg tabletIndicatio ns:Pain Take 1 Tablet (200 mg) by mouth every 4 hours if needed for Pain. 90 Tablet 1 023 Active NITROFURANTOIN ORAL Take by mouth. Activ e Lactobacillus rhamnosus GG (CULTURELLE ORAL) Take by mouth once daily. Active fluconazole (DIFLUCAN) 150 mg tablet Take 150 mg by mouth one time. Active durable medical equipment (DME)Indication s:Plantar fasciitis, left PLANTAR FASCIITIS NIGHT SPLINT, SMALL, REF: [phone] Active Cranberry Extract 425 mg capIndications: Recurrent UTI Take 1 Capsule by mouth two times daily. 180 Capsule 3 024 Active Diaper,Brief, Adult,Disposabl eIndications:Ur inary incontinence, unspecified type For home use. 90 Each 3 024 Active divalproex sprinkles (DEPAKOTE SPRINKLES) 125 mg capsuleIndicati ons:Impulse control disorder in adult TAKE 2 CAPSULES (250MG) BY MOUTH THREE TIMES DAILY 186 Capsule 11 025 Active risperiDONE (RISPERDAL) 0.5 mg tabletIndicatio ns:Impulse control disorder in adult TAKE 1 TABLET BY MOUTH THREE TIMES DAILY 93 Tablet 11 025 Active cetirizine 10 mg tabletIndicatio ns:Rhinorrhea Take 1 Tablet (10 mg) by mouth once daily. 90 Tablet 3 025 Active wheelchairIndic ations:Left foot pain,Severe intellectual disability Wheelchair: Standard with leg rests: (Swing away Length of need: 99 months 1 Each 025 Active ergocalciferol 50,000 unit capsuleIndicati ons:Vitamin D deficiency TAKE 1 CAPSULE BY MOUTH EVERY MORNING ONCE WEEKLY ON MONDAYS 5 Capsule 11 025 Active docusate (COLACE) 100 mg capsuleIndicati ons:Chronic constipation TAKE 1 CAPSULE BY MOUTH TWICE DAILY 180 Capsule 025 Active acetaminophen (TYLENOL EXTRA STRGTH) 500 mg tabletIndicatio ns:Pain TAKE 2 TABLETS (1000MG) BY MOUTH THREE TIMES DAILY --MAXIMUM OF 4000MG ACETAMINOPHEN IN 24 HOURS-- 540 Tablet 025 Active albuterol 0.083% (2.5 mg/3 mL) neb solutionIndicat ions:Wheezing Inhale 3 mL (2.5 mg) via a nebulizer every 4 hours if needed for Wheezing 2nd choice. 180 mL 025 Active NebulizerIndica tions:Wheezing Nebulizer, disposable neb kit x 4, reuseable neb kit x 1, mask x 1, filters x 1. Frequency of use: daily; Medication: albuterol Length of need: prn months 1 Each 025 Active ferrous sulfate 325 mg delayed release tabletIndicatio ns:Anemia due to acute blood loss,Iron deficiency anemia, unspecified iron deficiency anemia type Take 1 tablet every other day 90 Tablet 3 025 Active lactobacillus rhamnosus (GG) (EncarnateKublax) 10 billion cell -200 mg capsuleIndicati ons:Recurrent UTI TAKE 1 CAPSULE BY MOUTH ONCE DAILY NON-COVERED MED *ORDER WHEN LOW* 30 Capsule 11 025 Active polyethylene glycoL (MIRALAX) 17 gram/scoop powderIndicatio ns:Chronic constipation MIX 17GM (MEASURE WITH MARKINGS INSIDE CAP) IN 4-8 OUNCES OF LIQUID AND DRINK BY MOUTH ONCE DAILY;MIX 17GM (MEASURE WITH MARKINGS INSIDE CAP) IN 4-8 OUNCES OF LIQUID IN THE EVENING NEEDED 1530 g 3 025 Active Additional Information Patient taking differently: daily, Reported on 11/29/2024 durable medical equipment (DME)Indication s:Bilateral lower extremity edema 1 pair of knee high compression stockings (16-20 mmHg) 1 Each 025 Active LORazepam 2 mg tabletIndicatio ns:Anxiety,Acti ve autistic disorder (HC) TAKE 1 TABLET BY MOUTH 1 HOUR BEFORE MEDICAL OR DENTAL APPOINTMENT *ORDER WHEN LOW* *6 TOTAL FILLS* 10 Tablet 2 025 Active simethicone chewable (Gas Relief 80 (simethicone)) 80 mg chewable tabletIndicatio ns:Helicobacter pylori gastritis CHEW AND SWALLOW ONE TABLET FOUR TIMES A DAY FOR FLATULENCE 360 Tablet 11 025 Active phenytoin CHEW (DILANTIN) 50 mg tabletIndicatio ns:Convulsions, unspecified convulsion type (HC) CHEW 1 TABLET BY MOUTH EVERY MORNING 90 Tablet 025 Active phenytoin extended (DILANTIN) 100 mg ER capsuleIndicati ons:Convulsions , unspecified convulsion type (HC) TAKE 1 CAPSULE BY MOUTH EVERY MORNING;TAKE 2 CAPSULES (200MG) BY MOUTH AT BEDTIME 270 Capsule 025 Active sennosides-docu sate (Stool Softener-Stimul ant Laxat) (8.6-50 mg) tabletIndicatio ns:Chronic constipation TAKE TWO TABLETS BY MOUTH ONCE DAILY FOR CONSTIPATION (HOLD FOR DIARRHEA) 180 Tablet 2 025 Active busPIRone (BUSPAR) 5 mg tabletIndicatio ns:Anxiety TAKE 1 TABLET BY MOUTH THREE TIMES DAILY 3PM SPLIT M-T/F-S 90 Tablet 1 025 Active busPIRone (BUSPAR) 5 mg tabletIndicatio ns:Anxiety TAKE 1 TABLET BY MOUTH THREE TIMES DAILY 3PM SPLIT M-T/F-S 270 Tablet 025 2024 Discontinued Active Problems Problem Noted Date Diagnosed Date Iron deficiency anemia secon gloria to inadequate dietary iron intake 11/15/2024 Parkinsonism, unspecified Parkinsonism type 09/2024 Controlled substance agreeme nt signed, By Chinyere Zavaleta MD, psychiatry on 09/17/2016 / Roseann Calderón LPN 03/05/2024 Overview (03/05/2024): Tardive dyskinesia 08/23/2019 Pure hypercholesterolemia 06/20/2019 Recurrent UTI 06/20/2019 Chronic constipation 06/20/2019 Bowel and bladder incontinence 10/11/2018 Other buttermaker (current) drug therapy 9 Vitamin D deficiency [...] Encounters Date Type Department Care Team Description 01/22/2025 Telephone [facility] [address] [place] [address] Cassi Lynn MD 01/18/2025 3:25 PM GROCERY CLERK STOCKING Phone Office Visit [facility] [address] [place] [address] Arianna Pappas DO 01/18/2025 Telephone [facility] [address] [place] [address] Oncology, [facility] Appointment 01/18/2025 Telephone [facility] [address] [place] [address] Peterra Arianna [place], DO CRITICAL RESULTS 01/17/2025 1:30 PM GROCERY CLERK STOCKING Orders Only [facility] [address] [place] [address] [place], [place] Lab 01/17/2025 Orders Only [facility] Scanner 1 scan: (1-Ord) [facility], HGB AND MCV, 01/17/2025 01/17/2025 Travel 01/17/2025 Telephone [facility] [address] [place] [address] Isaíasqra Arianna [place], DO Form 01/02/2025 12:30 PM GROCERY CLERK STOCKING Orders Only [facility] [place] [address] [place] <No scans attached> 01/02/2025 Travel 01/01/2025 Refill [facility] [address] Chinyere Zavaleta MD Refill Request (Buspirone) 12/27/2024 2:35 PM CDT Phone Office Visit [facility] [address] [place] [address] Elyse Arianna Georgia, DO 12/20/2024 Telephone [facility] [address] [place] [address] Isaíasqra Arianna [place], DO Lab (Order ) 12/13/[address] [address] Oncology, [facility] Appointment 12/10/2024 9:00 AM CDT Orders Only [facility] [address] [place] [address] Lab, [place] 12/10/2024 Telephone [facility] [address] [place] [address] Oncology, [facility] Appointment 12/10/2024 Travel 11/29/2024 9:00 AM CDT Office Visit [address] [place] [address] Cassi Lynn MD Consult 11/29/2024 Travel 11/27/2024 Refill [facility] [address] [facility] [place] [address] Sir Pappasi Georgia, DO Refill Request (Phenytoin Chew, Phenytoin Extended) 11/26/2024 8:52 AM CDT - 11/26/2024 11:59 PM CDT Hospital Encounter [facility] [address] [facility] [place] [address] Iron deficiency anemia secondary to inadequate dietary iron intake (Primary Dx) 11/26/2024 Travel 11/23/2024 8:53 AM CDT - 11/23/2024 11:59 PM CDT Hospital Encounter [facility] [address] [place] [address] Arianna Pappas [place], DO Iron deficiency anemia secondary to inadequate dietary iron intake (Primary Dx) 11/23/2024 Travel 11/15/2024 Telephone [facility] [address] [facility] [place] [address] Oncology, [facility] 11/15/2024 Telephone [facility] [address] [facility] [place] [address] Arianna Pappas [place], DO Abnormal Lab Results 11/13/2024 Telephone [facility] [address] [place] [address] Sir Pappasi Georgia, DO Pharmacist Medication Management (sennosides-docusa te (Stool Softener-Stimulant Laxat) (8.6-50 mg) tablet) 11/12/2024 9:30 AM CDT Orders Only [facility] [address] [address] Amie Jay <No scans attached> 11/12/2024 Orders Only [facility] Scanner 1 scan: (1-Ord) [facility], MULTIPLE LABS, 11/12/2024 11/12/2024 Refill [facility] [address] [facility] [place] [address] Arianna Pappas [place], DO Refill Request (Senna) 11/12/2024 Travel 11/07/2024 Telephone [facility] [address] [facility] [phone] Oncology, [facility] [place] Appointment 11/05/2024 9:20 AM CDT Office Visit [facility] [address] [place] [address] Arianna Pappas [place], DO Results (ECHO - continues to have labored breathing ); Edema (RONNY ) 11/05/2024 Travel 10/31/2024 11:00 AM CDT Ancillary Procedure [facility] [address] [address] 10/31/2024 Travel 10/23/2024 Telephone [facility] [address] [place] [phone], [facility] Medicine Referral from Last 3 Months Immunizations Immunization Administration Dates Next Due COVID-19 vaccine (Moderna 100mcg/0.5mL) PF, MDV 01/15/2021,04/23/2020,03/26/2020 COVID-19 vaccine (Pfizer-Bio NTech 30mcg/0.3mL) 12YO+ STEVEN-SUCROSE PF, MDV 08/11/2021 Influenza A (H1N1), Inactivated 03/17/2009 Influenza [...] History Relation Name Comments Good Health Father Cancer-colon Maternal Aunt 1 Cancer-colon Maternal Aunt 2 Cancer-colon Maternal Grandmother Multiple myeloma Maternal Grandmother Good Health Mother Relation Name Status Comments Father Maternal Aunt 1 Alive Maternal Aunt 2 Alive Maternal Grandmother Mother Social History Tobacco Use Types Packs/Day Years Used Date Smoking Tobacco: Never Smokeless Tobacco: Never Tobacco Cessation:Counseling Given: Yes Alcohol Use Standard Drinks/Week Comments No 0 (1 standard drink = 0.6 oz pur e alcohol) PHQ-2 Answer Date Recorded PHQ-2 TOTAL SCORE 0 03/06/2024 Social Connections Answer Date Recorded Do you often feel lonely or isolated from those around you? 0 09/28/2024 Financial Resource Strain Answer Date R ecorded Difficulty of Paying Living Expenses 3 09/28/2024 Difficulty of Paying Living Expenses Not on file 09/28/2024 Food Insecurity Answer Date Recorded Do you worry your food will run out before you are able to buy more? 1 09/28/2024 Transportation Needs Answer Date Record ed Does lack of transportation keep you from medica l appointments? 1 09/28/2024 Does lack of transportation keep you from work, meetings or getting things that you need? 1 09/28/2024 Housing Stability Answer Date Recorded What is your housing situation today? 1 09/28/2024 Utilities Answer Date Recorded Do you have trouble paying f or utilities (for example, heat, electricity, water, phone)? 1 09/28/2024 Comments No Sex and Gender Information Value Date Recorded Sex Assigned at Not on file Legal Sex Female 5:24 AM GROCERY CLERK STOCKING Gender Identity Not on file Sexual Orientation [...] Sign Reading Time Taken Comments Blood Pressure 103/80 11/26/2024 9:45 AM CDT Pulse 61 11/26/2024 9:45 AM CDT Temperature 36.1 C (97 F) 11/26/2024 8:58 AM CDT Respiratory Rate 16 11/26/2024 8:58 AM CDT Oxygen Saturation 97% 11/26/2024 8:58 AM CDT Inhaled Oxygen Concentration - - Weight 76.7 kg (169 lb) 11/05/2024 9:29 AM CDT Height 155 cm (5' 1.02) 02/14/2023 9:59 AM GROCERY CLERK STOCKING Body Mass Index 31.91 02/14/2023 9:59 AM GROCERY CLERK STOCKING Plan of Treatment Upcoming Encounters Date Type Department Care Team (Late st Contact Info) Description 01/28/2025 2:45 PM GROCERY CLERK STOCKING Orders Only [address] [address] Lab, [facility] 02/01/2025 10:30 AM GROCERY CLERK STOCKING Appointment [address] [place] [address] 02/08/2025 10:45 AM GROCERY CLERK STOCKING Orders Only [address] [place] [address] Lab, [facility] 02/15/2025 10:45 AM GROCERY CLERK STOCKING Orders Only [address] [place] [address] Lab, [facility] 02/26/2025 10:35 AM GROCERY CLERK STOCKING Office Visit [facility] [address] [facility] [place] [address] Arianna Pappas, DO [address] [place] [address] 03/04/2025 10:15 AM GROCERY CLERK STOCKING Telemedicine [facility] [address] [place] [address] Chinyere Zavaleta MD [address] [place] [address] 04/04/2025 9:30 AM GROCERY CLERK STOCKING Orders Only [facility] [address] [place] [address] Lab, [place] Maintenance Due Date Last Done Comments Pneumococcal series for age 50+ (1 of 2 - PCV) 1979 RSV vaccine for adults or (1 - Risk 50-74 years 1-dose series) 2010 Mammogram for age 45-75 04/04/2013 04/04/2012 Pap test for age 21-65 07/15/2014 07/16/2011 BMI (ht and wt on same day) for age 18+ 02/15/2024 02/14/2023, 07/14/2022, 04/12/2022, Additional history exists Influenza Vaccine (#1) 2024 , 12/23/2021, 12/23/2020, Additional history exists Depression screening for age 12+ 03/07/2025 03/07/2024, 03/07/2024, 03/06/2024, Additional history exists Fecal testing sDNA-FIT (Cologuard) for age 45-75 07/06/2027 07/05/2024 Lipids for age 45-75 09/28/2029 09/28/2024, 01/24/2024, 06/14/2023, Additional history exists Tetanus booster 07/02/2031 07/01/2021, 03/22/2007 Zoster (shingles) series for age 50+ Completed 12/23/2020, 09/12/2020 HIV for age 15-65 Completed 04/12/2023 Hepatitis C screening for age 18-79 Completed 04/12/2023 Hepatitis B series for 19+ Aged Out N o longer eligible based on patient's age to complete this topic Procedures Procedure Name Priority Date/Time Associated Diagnosis Comments FERRITIN Routine 01/17/2025 1:37 PM GROCERY CLERK STOCKING Iron deficiency anemia, unspecified iron deficiency anemia type MCKEON (dyspnea on exertion) HEMOGLOBIN Routine 01/17/2025 1:37 PM GROCERY CLERK STOCKING Iron deficiency anemia, unspecified iron deficiency anemia type MCKEON (dyspnea on exertion) SCAN-LABORATORY REPORT 01/17/2025 12:00 AM GROCERY CLERK STOCKING IRON PLUS IRON BINDING CAP Routine 01/02/2025 12:30 PM GROCERY CLERK STOCKING Iron deficiency anemia, unspecified iron deficiency anemia type FERRITIN Routine 01/02/2025 12:30 PM GROCERY CLERK STOCKING Iron deficiency anemia, unspecified iron deficiency anemia type CBC W PLT NO DIFF Routine 01/02/2025 12: 30 PM GROCERY CLERK STOCKING Iron deficiency anemia, unspecified iron deficiency anemia type IRON PLUS IRON BINDING CAP Add On 12/10/2024 9:07 AM CDT Iron deficiency anemia due to chronic blood loss FERRITIN Routine 12/10/2024 9:07 AM CDT Iron deficiency anemia, unspecified iron deficiency anemia type CBC W PLT NO DIFF Routine 12/10/2024 9: 07 AM CDT Iron deficiency anemia, unspecified iron deficiency anemia type CBC WITH AUTO DIFFERENTIAL Routine 11/12/2024 9:56 AM CDT FERRITIN Routine 11/12/2024 9:56 AM CDT IRON PLUS IRON BINDING CAP Routine 11/12/2024 9:56 AM CDT SCAN-LABORATORY REPORT 11/12/2024 12:00 AM CDT ECHO TTE COMPLETE WO CONTRAST Routine 10/31/2024 11:24 AM CDT Cardiomegaly LIPID PANEL W REFLEX MEASURED LDL Routine 09/28/2024 1:46 PM CDT FDC current use of antipsychotic medication SDNA-FIT EXTERNAL (COLOGUARD) Routine 07/05/2024 8:40 AM CDT Screening for colorectal cancer ANTI HIV 1/2 Routine 04/12/2023 10:44 AM GROCERY CLERK STOCKING Screening for HIV (human immunodeficiency virus) ANTI HCV Routine 04/12/2023 10:44 AM GROCERY CLERK STOCKING Screening for HIV (human immunodeficiency virus) GYNECOLOGICAL PANEL Timed 07/16/2011 8 :26 AM CDT from Last 3 Months or Most Recently Relevant to Health Maintenance Results * (ABNORMAL) HEMOGLOBIN (01/17/2025 1:37 PM GROCERY CLERK STOCKING) HEMOGLOBIN 6.8(L) 11.7 - 15.5 g/dL 01/18/2025 8:03 AM GROCERY CLERK STOCKING [facility] Comment: Verified by repeat analysis. Review of peripheral smear confirms automated results. MCV 86.5 80.0 - 100.0 fL 01/18/2025 8:03 AM GROCERY CLERK STOCKING [facility] Blood BLOOD SPECIMEN / Unknown [facility] / Unknown 01/17/2025 1:37 PM GROCERY CLERK STOCKING 01/17/2025 1:37 PM GROCERY CLERK STOCKING [employer] DO HEMATOLOGY Edited Result - Final Performing Organization Address City/[facility]/ZIP Co de Phone Number [facility] [address] [address], * (ABNORMAL) FERRITIN (01/17/2025 1:37 PM GROCERY CLERK STOCKING) Only the most recent of4 resultswithin the time period is included. Pathologist [facility] FERRITIN 11(L) 16 - 288 ng/mL 01/18/2025 8:03 AM GROCERY CLERK STOCKING [facility] Blood BLOOD SPECIMEN / Unknown [facility] / Unknown 01/17/2025 1:37 PM GROCERY CLERK STOCKING 01/17/2025 1:37 PM GROCERY CLERK STOCKING [employer] DO CHEMISTRY Edited Result - Final Performing Organization Address City/[facility]/ZIP Co de Phone Number [facility] [address] [address], [place] [phone] * SCAN-LABORATORY REPORT (01/17/2025 12:00 AM GROCERY CLERK STOCKING) Only the most recent of2 resultswithin the time period is included. us Scanner OTHER Final Result * IRON PLUS IRON BINDING CAP (01/02/2025 12:30 PM GROCERY CLERK STOCKING) Only the most recent of3 resultswithin the time period is included. Pathologist [facility] IRON, TOTAL 74 45 - 160 mcg/dL 01/03/2025 4:14 AM GROCERY CLERK STOCKING [facility] IRON BINDING CAPACITY 286 250 - 450 mcg/dL (calc) 01/03/2025 4:14 AM GROCERY CLERK STOCKING [facility] % SATURATION 26 16 - 45 % (calc) 01/03/2025 4:14 AM GROCERY CLERK STOCKING [facility] Blood BLOOD SPECIMEN / Unknown [facility] / Unknown 01/02/2025 12:30 PM GROCERY CLERK STOCKING 01/02/2025 12:30 PM GROCERY CLERK STOCKING us Arianna Pappas DO CHEMISTRY Final Result [facility] [address] [place] [address], * (ABNORMAL) CBC W PLT NO DIFF (01/02/2025 12:30 PM GROCERY CLERK STOCKING) Only the most recent of2 resultswithin the time period is included. [facility] WHITE BLOOD CELL COUNT 8.1 3.8 - 10.8 Thousand/ uL 01/03/2025 2:43 AM GROCERY CLERK STOCKING [facility] RED BLOOD CELL COUNT 4.53 3.80 - 5.10 Million/u L 01/03/2025 2:43 AM GROCERY CLERK STOCKING [facility] HEMOGLOBIN 10.7(L) 11.7 - 15.5 g/dL 01/03/2025 2:43 AM GROCERY CLERK STOCKING [facility] HEMATOCRIT 36.6 35.0 - 45.0 % 01/03/2025 2:43 AM GROCERY CLERK STOCKING [facility] MCV 80.8 80.0 - 100.0 fL 01/03/2025 2:43 AM GROCERY CLERK STOCKING [facility] MCH 23.6(L) 27.0 - 33.0 pg 01/03/2025 2:43 AM GROCERY CLERK STOCKING [facility] MCHC 29.2(L) 32.0 - 36.0 g/dL 01/03/2025 2:43 AM GROCERY CLERK STOCKING [facility] Comment: For adults, a slight decrease in the calculated MCHC value (in the range of 30 to 32 g/dL) is most likely not clinically significant; however, it should be interpreted with caution in correlation with other red cell parameters and the patient's clinical condition. RDW 18.7(H) 11.0 - 15.0 % 01/03/2025 2:43 AM GROCERY CLERK STOCKING [facility] PLATELET COUNT 371 140 - 400 Thousand/ uL 01/03/2025 2:43 AM GROCERY CLERK STOCKING [facility] MPV 11.3 7.5 - 12.5 fL 01/03/2025 2:43 AM GROCERY CLERK STOCKING [facility] Blood BLOOD SPECIMEN / Unknown [facility] / Unknown 01/02/2025 12:30 PM GROCERY CLERK STOCKING 01/02/2025 12:30 PM GROCERY CLERK STOCKING us Arianna Pappas DO HEMATOLOGY Final Result [facility] [address] [place] [address], * (ABNORMAL) CBC AND DIFFERENTIAL (11/12/2024 9:56 AM CDT) Pathologist [facility] WHITE BLOOD CELL COUNT 10.5 3.8 - 10.8 Thousand/u L [facility] RED BLOOD CELL COUNT 3.34(L) 3.80 - 5.10 Million/uL [facility] HEMOGLOBIN 6.9(L) 11.7 - 15.5 g/dL [facility] Comment: Verified by repeat analysis. HEMATOCRIT 26.3(L) 35.0 - 45.0 % [facility] MCV 78.7(L) 80.0 - 100.0 fL [facility] MCH 20.7(L) 27.0 - 33.0 pg [facility] MCHC 26.2(L) 32.0 - 36.0 g/dL [facility] Comment: For adults, a slight decrease in the calculated MCHC value (in the range of 30 to 32 g/dL) is most likely not clinically significant; however, it should be interpreted with caution in correlation with other red cell parameters and the patient's clinical condition. RDW 19.2(H) 11.0 - 15.0 % [facility] PLATELET COUNT 637(H) 140 - 400 Thousand/u L [facility] MPV 10.2 7.5 - 12.5 fL [facility] ABSOLUTE NEUTROPHILS 7,235 1,500 - 7,800 cells/uL [facility] ABSOLUTE LYMPHOCYTES 2,174 850 - 3,900 cells/uL [facility] ABSOLUTE MONOCYTES 924 200 - 950 cells/uL [facility] ABSOLUTE EOSINOPHILS 147 15 - 500 cells/uL [facility] ABSOLUTE BASOPHILS 21 0 - 200 cells/uL [facility] NEUTROPHILS 68.9 % [facility] LYMPHOCYTES 20.7 % [facility] MONOCYTES 8.8 % [facility] EOSINOPHILS 1.4 % [facility] BASOPHILS 0.2 % [facility] CBC (INCLUDES DIFF/PLT) COMMENTS [facility] Comment: Review of peripheral smear confirms automated results. 11/12/2024 9:56 AM CDT 11/12/2024 1:29 PM CDT Arianna Pappas DO HEMATOLOGY Final Result [facility] [address] [place] [address], [facility] [address] * ECHO TTE COMPLETE WO CONTRAST (10/31/2024 11:24 AM CDT) AORTIC VALVE MEAN PG 7 mmHg EJECTION FRACTION 79 % LVEDD 4.3 cm EJECTION FRACTION 65 - 70% Anatomical Region Laterality Modality Ultrasound 10/31/2024 10:5 8 AM CDT Narrative 10/31/2024 11:33 AM CDT ECHOCARDIOGRAM KASIE GOLD : 1960 64 years Study Date: 10/31/2024 10:58:56 AM Gender: F BP: 0/0 mmHg Height: 155.00 cm BSA: 1.79 m Weight: 80.00 kg Tech: NORMAN Referring MD: CANDIDA TRUONG Site: [facility] Reading Location: Mobile-OP Patient Location: Outpatient. Procedure: 2D, Color Doppler and Spectral Doppler. Indication for study: Cardiomegaly Cardiac Rhythm: Regular.Study quality: Technically limited. Final Impressions: 1. Technically limited exam. 2. Normal LV size, normal wall thickness, estimated EF of 65 - 70%. 3. No significant valve disease detected. Chamber Sizes and Function Normal left ventricular size, normal wall thickness, normal global systolic function with an estimated EF of 65 - 70%. No resting regional wall motion abnormality visualized. Left atrial size is normal. Left atrial pressure is normal. Right ventricular cavity size is normal, global systolic RV function is normal. RV wall thickness is normal. The right atrium is normal. Right atrial volume index is 8 ml/m . Right atrial area is 10 cm . The pulmonary artery is of normal size and origin. The sinus of Valsalva is normal sized. The ascending aorta is normal sized. Valves, RV Pressures and Diastolic Function The aortic valve is normal in structure and trileaflet, no stenosis and no regurgitation. The mitral valve is normal in structure, no mitral regurgitation. Normal diastolic function. The tricuspid valve is normal in structure, regurgitation is not evident tricuspid regurgitation. The pulmonic valve is normal. No pulmonary regurgitation. Masses, Effusion, Shunts There is no pericardial effusion. The inferior vena cava is normal sized, respiratory size variation greater than 50%. No left to right shunting was detected by limited color flow Doppler interrogation of the interatrial septum. MEASUREMENTS AND CALCULATIONS 2-D Measurements and LV Function: LVID (d) 4.3 cm LV FS% (2D) 44 % LVID (s) 2.4 cm LVOT diameter 1.8 cm IVS (d) 0.9 cm HR 72 bpm LVPW (d) 0.9 cm LA Vol index 32 ml/m2 Ao Sinus 2.5 cm RA Vol index 8 ml/m2 Ao Sinus ULN 3.7 cm RA area 10 cm Asc Ao 2.8 cm RV Basal Diam 3.0 cm Asc Ao ULN 3.9 cm LA 4.0 cm Diastology: Mitral Tissue Doppler Pulmonary veins E Peak 0.9 m/s e', Septum 0.09 m/s Pulm s 75.5 cm/s A Peak 1.0 m/s e', Lateral 0.14 m/s Pulm d 47.5 cm/s E/A 0.9 E/e' Average 7.38 Pulm s/d ratio 1.59 DT 216 msec Aortic Valve: Vmax 1.9 m/s LATONIA (V) 1.60 cm VTI 0.36 m LATONIA (I) 1.94 cm LVOT V max 1.2 m/s Max PG 14 mmHg LVOT VTI 0.27 m Mean PG 7 mmHg SV 69 ml Dim Index 0.76 SV index 39 ml/m CO 5.0 l/min CI 2.8 l/min/m Mitral Valve: MVA 3.5 cm MV P 1/2 63 msec Tricuspid Valve and estimated PA pressures: TAPSE 2.0 cm Pulmonic Valve: PV AT 98 msec . This study was interpreted by an [facility] accredited facility. Final Procedure Note Esa Wan MD - 10/31/2024 ECHOCARDIOGRAM KASIE GOLD : 1960 64 years Study Date: 10/31/2024 10:58:56 AM Gender: F BP: 0/0 mmHg Height: 155.00 cm BSA: 1.79 m Weight: 80.00 kg Tech: [facility] Referring MD: CANDIDA TRUONG Site: [facility] Reading Location: Mobile-OP Patient Location: Outpatient. Procedure: 2D, Color Doppler and Spectral Doppler. Indication for study: Cardiomegaly Cardiac Rhythm: Regular.Study quality: Technically limited. Final Impressions: 1. Technically limited exam. 2. Normal LV size, normal wall thickness, estimated EF of 65 - 70%. 3. No significant valve disease detected. Chamber Sizes and Function Normal left ventricular size, normal wall thickness, normal globalsystolic function with an estimated EF of 65 - 70%. No resting regionalwall motion abnormality visualized. Left atrial size is normal. Leftatrial pressure is normal. Right ventricular cavity size is normal, globalsystolic RV function is normal. RV wall thickness is normal. The rightatrium is normal. Right atrial volume index is 8 ml/m . Right atrial areais 10 cm . The pulmonary artery is of normal size and origin. The sinusof Valsalva is normal sized. The ascending aorta is normal sized. Valves, RV Pressures and Diastolic Function The aortic valve is normal in structure and trileaflet, no stenosis and noregurgitation. The mitral valve is normal in structure, no mitralregurgitation. Normal diastolic function. The tricuspid valve is normal instructure, regurgitation is not evident tricuspid regurgitation. Thepulmonic valve is normal. No pulmonary regurgitation. Masses, Effusion, Shunts There is no pericardial effusion. The inferior vena cava is normal sized,respiratory size variation greater than 50%. No left to right shunting wasdetected by limited color flow Doppler interrogation of the interatrialseptum. MEASUREMENTS AND CALCULATIONS 2-D Measurements and LV Function: LVID (d) 4.3 cm LV FS% (2D) 44 % LVID (s) 2.4 cm LVOT diameter 1.8 cm IVS (d) 0.9 cm HR 72 bpm LVPW (d) 0.9 cm LA Vol index 32 ml/m2 Ao Sinus 2.5 cm RA Vol index 8 ml/m2 Ao Sinus ULN 3.7 cm RA area 10 cm Asc Ao 2.8 cm RV Basal Diam 3.0 cm Asc Ao ULN 3.9 cm LA 4.0 cm Diastology: Mitral Tissue Doppler Pulmonary veins E Peak 0.9 m/s e', Septum 0.09 m/s Pulm s 75.5 cm/s A Peak 1.0 m/s e', Lateral 0.14 m/s Pulm d 47.5 cm/s E/A 0.9 E/e' Average 7.38 Pulm s/d ratio 1.59 DT 216 msec Aortic Valve: Vmax 1.9 m/s LATONIA (V) 1.60 cm VTI 0.36 m LATONIA (I) 1.94 cm LVOT V max 1.2 m/s Max PG 14 mmHg LVOT VTI 0.27 m Mean PG 7 mmHg SV 69 ml Dim Index 0.76 SV index 39 ml/m CO 5.0 l/min CI 2.8 l/min/m Mitral Valve: MVA 3.5 cm MV P 1/2 63 msec Tricuspid Valve and estimated PA pressures: TAPSE 2.0 cm Pulmonic Valve: PV AT 98 msec . This study was interpreted by an [facility] accredited facility. Final Candida MACHUCA ECHO ORD Final Result * (ABNORMAL) LIPID PANEL W REFLEX MEASURED LDL (09/28/2024 1:46 PM CDT) CHOLESTEROL, TOTAL 203(H) <200 mg/dL [facility] HDL CHOLESTEROL 59 > OR = 50 mg/dL [facility] TRIGLYCERIDES 113 <150 mg/dL [facility] LDL-CHOLESTEROL 122(H) mg/dL (calc) [facility] Comment: Reference range: <100 Desirable range <100 mg/dL for primary prevention; <70 mg/dL for patients with CHD or diabetic patients with > or = 2 CHD risk factors. LDL-C is now calculated using the Jeffrey-Liriano calculation, which is a validated novel method providing better accuracy than the Friedewald equation in the estimation of LDL-C. Jeffrey SS et al. RAEGAN. 2013;310(19): 9135-6256 (http://education.Options Away.Advanced Electron Beams/faq/ECV992) CHOL/HDLC RATIO 3.4 <5.0 (calc) [facility] NON HDL CHOLESTEROL 144(H) <130 mg/dL (calc) [facility] Comment: For patients with diabetes plus 1 major ASCVD risk factor, treating to a non-HDL-C goal of <100 mg/dL (LDL-C of <70 mg/dL) is considered a therapeutic option. Blood BLOOD SPECIMEN / Unknown 09/28/2024 1:46 PM CDT 09/28/2024 1:46 PM CDT Chinyere Zavaleta MD CHEMISTRY Final Result [facility] [address] [place] [address], [facility] [address] [place] [address] * SDNA-FIT EXTERNAL (COLOGUARD) [[id number]] (07/05/2024 8:40 AM CDT) NONINV COLON CA DNA+OCC BLD SCRN STL-IMP Negative Negative 07/12/2024 10:01 AM CDT [facility] (CLIA #:[id number]) Comment: The Cologuard Plus (TM) test was performed on this specimen. NEGATIVE TEST RESULT. A negative (normal) Cologuard Plus result means the patient has a [id number] chance of having colorectal cancer (CRC) or advanced precancer (polyps or lesions that could become cancer). Negative is the normal value (reference range) for this assay. Guidelines recommend screening again 3 years after a negative Cologuard Plus result. Continued screening increases the chance of finding CRC early or preventing it entirely. A clinical validation study showed the Cologuard Plus test is effective at ruling out CRC. Out of every 10,000 patients testing negative, approximately 2 will be falsely reassured that they do not have CRC, and out of every 100 patients testing negative, approximately 7 patients will be falsely reassured they do not have advanced precancer. TEST DESCRIPTION: The Cologuard Plus test is a multi-target stool DNA (mt-sDNA) test that analyzes DNA and hemoglobin biomarkers in stool. It uses a proprietary algorithm to qualitatively detect CRC and advanced precancer. It is FDA-approved and indicated for use in adults 45 years or older at average risk for CRC. A positive (abnormal) result should be followed by a colonoscopy. Patients with a negative (normal) result should screen again in 3 years. False positive and false negative results may occur. The USPSTF recommends the Cologuard test as a CRC screening option. Their modeling estimates that screening with the test every 3 years from ages 45-85 could prevent up to 73% of CRC and avoid up to 85% of CRC deaths. A 18,911-patient clinical trial found the Cologuard Plus test effectively detects CRC and precancer. The study found the test was 95% sensitive for CRC, 43% sensitive for advanced precancer, and had a 91% specificity (Cologuard Plus Clinician Brochure. [place] Visit www.Electric Objects.com/about/iodqhsoh-iqhkwambnun-trvzjechxhg for more test information, references, warnings, and precautions. Stool specimen (specimen) (Rectum) 07/05/2024 8:40 AM CDT 07/07/2024 1:34 PM CDT Artsy DO URINE Final Result Performing Organization Address [facility] Co de Phone Number [facility] (CLIA #:[id number]) [address] [place] [address], * ANTI HCV (04/12/2023 10:44 AM GROCERY CLERK STOCKING) HEPATITIS C ANTIBODY Non-Reacti ve Non-React katelyn 04/12/2023 10:40 PM GROCERY CLERK STOCKING [facility] Comment:Please note, per www .CDC.gov: If a patient is known to be at high risk of HCV infection, or is symptomatic, and the physician's suspicion of HCV infection is high, HCV RNA testing is often employed and is of diagnostic value, even after an initial negative anti-HCV test result. Blood BLOOD SPECIMEN / Unknown Butterfly / Unknown 04/12/2023 10:44 AM GROCERY CLERK STOCKING 04/12/2023 10:45 AM GROCERY CLERK STOCKING [employer] DO SEND OUTS Final Result [facility] [address] [place] [address], * ANTI HIV 1/2 (04/12/2023 10:44 AM GROCERY CLERK STOCKING) HIV-1/HIV-2 SCREEN Non-Reacti ve Non-Reacti ve 04/12/2023 10:41 PM GROCERY CLERK STOCKING [facility] Comment:HIV-1 p24 and HIV-1/ HIV-2 Ab Not Detected. Blood BLOOD SPECIMEN / Unknown Butterfly / Unknown 04/12/2023 10:44 AM GROCERY CLERK STOCKING 04/12/2023 10:45 AM GROCERY CLERK STOCKING Arianna Pappas DO SEND OUTS Final Result [facility] [address] [place] [address], * GYNECOLOGICAL PANEL (07/16/2011 8:26 AM CDT) CYTOLOGY CYTOPATHOLOGY REPORT [facility] Status: Final Status [id number] CLINICAL INFORMATION Last Pap Date :2008 Hormone Usage :Depo Menstrual Status :menopause? SPECIMEN SOURCE :Cervical/vaginal ThinPrep Vial, screening SPECIMEN ADEQUACY :Satisfactory for evaluation Endocervical component present. INTERPRETATION/RES ULT Negative for intraepithelial lesion or malignancy (NIL) EDUCATIONAL NOTES AND SUGGESTIONS For technical reasons this ThinPrep Pap could not be screened by the Metal Riveting Machine Operator so it was manually screened. Cytology 1st Screener :nm Signed by :nm This specimen was screened by the FDA [...] malignant lesions. COLLECTED:07/16/11 ACCESSIONED: 07/19/11 SIGNED: 07/22/11 [facility] PAP BETHESDA CODE NIL [facility] 07/16/2011 8:26 AM CDT 07/16/2011 6:36 PM CDT us Tigre Claudio MD PATHOLOGY/CYTOLOGY Final Re sult [facility] INTERNAL ZIP [id number] [place] [phone] from Last 3 Months or Most Recently Relevant to Health Maintenance Insurance MEDICARE PB ONLY MEDICAID MEDICARE PART B HB ONLY MEDICARE PART A HB ONLY MEDICARE PART A HB ONLY MEDICARE PART B HB [place] [id number] Advance Directives Documents on File Type Date Recorded Patient Food Cooking Machine Operator Expl anation POLST 03/06/2024 4:35 PM POLST 02/17/2024 POLST 08/12/2023 024 * Full Code (Latest Code Status on File) Date Activated Date Inactivated Comments 11/01/2012 6:48 PM 11/06/2012 3:52 PM Care Teams Database Management Specialist Relationship Specialty Start Date End Date Arianna Pappas DO [address] [place] [address] PCP - General Family Practice 07/27/22 Chinyere Thompson AuD Audiology 04/14/11 Carmelita Neri, ROSHNI [address] [facility] [place] [address] Oncology 11/20/24 Cassi Lynn MD [address] [facility] [place] [address] Oncology 11/20/24
[2025-01-22 09:55] VITALS: PULSE 85; TEMP 36.3; O2SAT 97
--- NOTE | 2025-01-22 10:05 | ED.GENADULT ---
HPI - General Adult General Time Seen by Provider: 10:05 Date Seen: 01/22/25 Chief complaint: Nausea/Vomiting Stated complaint: Vomiting, black stool, low O2 Time Seen by Provider: 01/22/25 10:04 Source: patient, family (Patient's sister is present.) and other (Care providers from the custodial are present.) Mode of arrival: ambulatory Limitations: no limitations History of Present Illness HPI narrative: This 64-year-old female with severe mental retardation and autism is brought in by a her custodial providers and her sister who is 1 of her guardians for episode of hypoxia to 80% in conjunction with vomiting and diarrhea. This episode happened this morning. The vomiting and diarrhea were black. Patient does take an iron supplement. Her history is a bit complex. She is very intolerant of medical procedures. She has been having iron deficiency anemia, had an EGD in September that was reportedly negative. She has not done colonoscopy and they do not see that there is any way she would tolerated. They have not done CT imaging. She was started on then a fear transfusions, had 2 of them, hemoglobin reportedly stabilized and then in the last 2 weeks her hemoglobin has went down significantly again. She was scheduled to get an emergent iron transfusion today, they called the transfusion center with this episode in they told them that they needed to go to the ER. They did have a discussion with her primary care provider this past Tuesday Dr. Pappas at [facility] and did start discussion of comfort cares but order was not placed. Patient does have a DNR DNI order in place. She reportedly in June did have a negative Cologuard test. There are family members with colon cancer, there is a grandmother who had colon cancer in her 80s and an aunt or great aunt. She resides in a custodial. They do not know at this point if the custodial can do comfort cares or hospice there. They do believe that they can make a call to find this out. Related Data Home Medications ?Medication ?Instructions ?Recorded ?Confirmed acetaminophen 500 mg tablet mg PO 05/15/24 07/10/24 buspirone 5 mg tablet 5 mg PO 3XD 05/15/24 07/10/24 cetirizine 10 mg tablet 10 mg PO DAILY 05/15/24 07/10/24 divalproex 250 mg tablet,delayed PO 05/15/24 07/10/24 release ergocalciferol (vitamin D2) 1,250 PO 05/15/24 07/10/24 mcg (50,000 unit) capsule lorazepam 1 mg tablet mg PO 05/15/24 07/10/24 omeprazole 40 mg capsule,delayed 40 mg PO DAILY 05/15/24 07/10/24 release phenytoin 50 mg chewable tablet 100 mg PO DAILY 05/15/24 07/10/24 risperidone 0.5 mg tablet PO 05/15/24 07/10/24 Previous Rx's ?Medication ?Instructions ?Recorded Adult Wheelchair #1 ea 05/15/24 lorazepam 2 mg/mL injection 0.25 mg (0.125 mL) sublingual Q60M 01/22/25 solution (Ativan) PRN #25 mL morphine 20 mg/5 mL (4 mg/mL) oral 5 mg (1.25 mL) PO Q2H PRN #100 mL 01/22/25 solution Allergies Allergy/AdvReac Type Severity Reaction Status Date / Time pseudoephedrine Allergy Verified 07/10/24 09:45 tetracycline Allergy Verified 07/10/24 09:45 etomidate AdvReac Verified 07/10/24 09:45 ketamine AdvReac Verified 07/10/24 09:45 propofol AdvReac Verified 07/10/24 09:45 sulfamethoxazole (From AdvReac Verified 07/10/24 09:45 Bactrim) trimethoprim (From Bactrim) AdvReac Verified 07/10/24 09:45 Review of Systems Status of ROS: Reports: 6 or more systems reviewed and unremarkable except as noted in History and below [facility] Medical History Severe developmental delay ?R62.50 - Unspecified lack of expected normal physiological development in childhood (ICD-10) Autism ?F84.0 - Autistic disorder (ICD-10) Seizure ?R56.9 - Unspecified convulsions (ICD-10) Social History Smoking Status: Never smoker How often do you have a drink containing alcohol: never AUDIT-C Alcohol total score: 0 Non-prescribed substance use: denies use Exam Const: Vital Signs, click to edit/add: Vital Signs - 24 hr 01/22/25 09:55 01/22/25 10:36 Temperature 97.4 F L Pulse Rate [Pulse Oximeter] 85 90 Respiratory Rate 20 Blood Pressure [Ri ght Forearm] 120/55 L Pulse Oximetry 97 96 Oxygen Delivery Me thod Room Air Room Air Patient looks pale, is lying in the bed. Vitals are reviewed. She is not interactive with me. She is breathing easily on room air, no stridor or tachypnea. Lungs are clear, no wheezing or crackles. CV regular rate and rhythm, no murmur, normal S1-S2. Abdomen feels soft, she does not interact with me during the abdominal examination, do not feel any masses organomegaly. I will not be doing a rectal exam on this patient, she does not understand nor would be felt to be compliant with this examination. Skin visualized without any petechiae or rashes. She is just overall pale. Documenting provider has reviewed patient's vital signs: yes Course Course ED Course: We have discussed this patient's situation. We did discuss doing CT imaging with sedation to look for intra-abdominal mass or colon cancer. They are declining, they would not do anything with information, would not intervene. If she did require sedation for CT imaging, potentially would be a transfer to an outside institution for us although I technically M an extra physician here today and potentially would have time to accompany her into the CT scan if she were sedated. They are declining this which I think is reasonable as there is no plant intervene on this. She is very intolerant of any medical procedures or significant interventions. Things like any long-term IVs will not stay in place, she pulls them out. They do not even feel that she would keep an IV in for blood transfusion, keeping an IV in for hours is not a reasonable expectation for this patient and thus they would not do any blood transfusion. I will not do a type and screen given this situation. We will do some basic lab work including hemoglobin. This will help pain to better picture. They are where that we do not do IV iron out of the ER. It sounds as if progressing towards comfort cares is the overall thought but we will gather some labs 1st. They think that if we can get a quick blood draw, she will not need sedation for that. If there is any difficulty in finding a source to get a blood draw, she may require sedation. We will obtain some basic labs, see where her hemoglobin is and discuss further. Reevaluation(s) Time of Reevaluation #1: 11:07 Reevaluation #1: Have reviewed with patient's sister, she did get patient's mom on the phone as these 2 are co-guardians for her. The care provider from the custodial is still here. Her hemoglobin is down to 5.6. Consultations Consultation #1: We were able to get Dr. Pappas her primary provider on the phone. Patient's mom was conferenced in on phone as well. We all discussed the current situation. Dr. Pappas is in agreement that it is time for comfort cares. She is going to put a comfort care order in as well as a hospice consult order in. We are still going to have hospital social worker come down and see if there is anything further that they can do to assist with hospice. The custodial can do comfort cares there. I have confirmed with Dr. Pappas that I will write for some p.r.n. Ativan and morphine for comfort cares. Plan will be to discharge back to the custodial. Patient already had a DNR DNI order in place. Time: 11:25 Consultation #2: Last Trimmer was down. They would like to use [facility] services. Patient can discharge back to her custodial at this time. Time: 12:07 Vital Signs Vital signs: Initial Vital Signs Temperature 97.4 F L 01/22/25 09:55 Temperature Source Temporal Artery Scan 01/22/25 09:55 Pulse Rate 85 01/22/25 09:55 Pulse Oximetry 97 01/22/25 09:55 Oxygen Delivery Method Room Air 01/22/25 09:55 Vital Signs Temperature 97.4 F L 01/22/25 09:55 Pulse Rate 85 01/22/25 09:55 Pulse Oximetry 97 01/22/25 09:55 Oxygen Delivery Method Room Air 01/22/25 09:55 Temperature 97.4 F L 01/22/25 09:55 Pulse Rate 90 01/22/25 10:36 Respiratory Rate 20 01/22/25 10:36 Blood Pressure 120/55 L 01/22/25 10:36 Pulse Oximetry 96 01/22/25 10:36 Oxygen Delivery Method Room Air 01/22/25 10:36 Medical Decision Making Lab Data Lab results reviewed: Yes I reviewed the patient's lab results Labs: Lab Results 01/22/25 Range/Units 10:31 WBC 12.76 H (4.50-11.00) K/uL RBC 2.33 L (4.00-5.20) m/uL Hgb 5.6 L* (12.0-16.0) gm/dL Hct 20.2 L (33.0-51.0) % MCV 87 (80-100) fL MCH 24 L (26-34) pg MCHC 28 L (32-36) gm/dL RDW Coeff of [place] 20.2 H (11.5-15.5) % Plt Count 622 H (140-440) K/uL Neut % (Auto) 75.3 H (42.0-72.0) % Lymph % (Auto) 14.3 L (20-44) % [place] % (Auto) 8.9 (0.0-11.0) % Eos % (Auto) 0.5 (0.0-7.0) % Baso % (Auto) 0.3 (0.0-3.0) % Neut # (Auto) 9.60 H (1.7-7.0) K/uL Lymph # (Auto) 1.80 (0.90-2.90) K/uL [place] # (Auto) 1.10 H (0.00-0.90) K/UL Eos # (Auto) 0.10 (0.00-0.50) K/uL Baso # (Auto) 0.00 (0.00-0.30) K/uL Abs Immat Gran (auto) 0.10 (0.00-0.30) K/uL Imm/Tot Granulo (auto) 0.7 % Sodium 139 (135-149) mmol/L Potassium 3.9 (3.6-5.1) mmol/L Chloride 107 (96-114) mmol/L Carbon Dioxide 20 (20-32) mmol/L Anion Gap 12 (7-15) mEq/L BUN 27 (7-30) mg/dL Creatinine 0.5 (0.5-1.5) mg/dL Estimated GFR 105 ml/min Glucose 93 (60-115) mg/dL Lactate 3.0 H (0.5-1.9) mmol/L Calcium 8.2 L (8.4-10.6) mg/dL Total Bilirubin 0.2 (0.1-1.5) mg/dL AST 23 (12-35) U/L ALT 15 (4-35) U/L Alkaline Phosphatase 73 (40-150) U/L Total Protein 6.0 (6.0-8.3) g/dL Albumin 3.4 (3.3-5.0) g/dL Discharge Plan Discharge Clinical Impression: GI (gastrointestinal bleed), Need for comfort care Patient Disposition: Home w/ Parent or Adult Condition: Unchanged Additional Instructions: I have sent p.r.n. Ativan and morphine to the pharmacy. Dr. Pappas has placed orders for comfort care and hospice consultation through the clinic. Prescriptions: New lorazepam [Ativan] 2 mg/mL solution 0.25 mg sublingual Q60M PRNQty: 25 0RF Rx Instructions: Can increase dose to 0.5mg Q1 hour prn agitation morphine 20 mg/5 mL (4 mg/mL) solution 5 mg PO Q2H PRNQty: 100 0RF Rx Instructions: Can increase to 5mg Q1 hours prn pain if needed. No Action buspirone 5 mg tablet 5 mg PO 3XD divalproex 250 mg tablet,delayed release (DR/EC) PO cetirizine 10 mg tablet 10 mg PO DAILY phenytoin 50 mg tablet,chewable 100 mg PO DAILY omeprazole 40 mg capsule,delayed release(DR/EC) 40 mg PO DAILY acetaminophen 500 mg tablet PO ergocalciferol (vitamin D2) 1,250 mcg (50,000 unit) capsule PO lorazepam 1 mg tablet PO risperidone 0.5 mg tablet PO (DME) Adult Wheelchair Misc See Rx Instructions .Route Qty: 1 0RF Rx Instructions: As directed Follow Up/Referrals: Arianna Pappas DO [Primary Care Provider, Family Practice] Stand Alone Forms: [facility] Info Instructions
[2025-01-22 10:36] VITALS: BP 120/55; PULSE 90; RESP 20; O2SAT 96
[2025-01-22 10:37] LABS: Lactate* 3.0 mmol/L (0.5-1.9)
[2025-01-22 10:42] LABS: Hematocrit* 20.2 % (33.0-51.0); Immature Granulocytes Pct Auto 0.7 %; Mean Corpuscular HGB Conc 28 gm/dL (32-36); Mean Corpuscular Hemoglobin 24 pg (26-34); Mean Corpuscular Volume 87 fL (80-100); RDW Coefficient of Variation % 20.2 % (11.5-15.5); Red Blood Count* 2.33 m/uL (4.00-5.20); White Blood Count* 12.76 K/uL (4.50-11.00)
[2025-01-22 10:43] LABS: Hemoglobin* 5.6 gm/dL (12.0-16.0); Immature Granulocytes Abs Auto 0.10 K/uL (0.00-0.30); Lymphocytes Absolute Auto 1.80 K/uL (0.90-2.90); Slide Review Reflex No
[2025-01-22 11:00] LABS: Albumin* 3.4 g/dL (3.3-5.0); Chloride* 107 mmol/L (96-114); Potassium* 3.9 mmol/L (3.6-5.1); Sodium* 139 mmol/L (135-149)
[2025-01-22 11:03] LABS: Alanine Aminotransferase* 15 U/L (4-35); Alkaline Phosphatase* 73 U/L (40-150); Anion Gap 12 mEq/L (7-15); Aspartate Amino Transferase* 23 U/L (12-35); Bilirubin Total* 0.2 mg/dL (0.1-1.5); Blood Urea Nitrogen* 27 mg/dL (7-30); Calcium* 8.2 mg/dL (8.4-10.6); Carbon Dioxide* 20 mmol/L (20-32); Creatinine* 0.5 mg/dL (0.5-1.5); Estimated Glomerular Filt Rate 105 ml/min; Glucose* 93 mg/dL (60-115); Total Protein* 6.0 g/dL (6.0-8.3)
--- NOTE | 2025-01-22 14:55 | PC.SOCIAL ---
Discharge planning from the ED: Pt and guardian are interested in hospice. Pt was seen last Tuesday at [facility] by her PCP, Dr. Arianna Pappas DO to discuss hospice. Dr. Pappas has now put in admit to hospice orders. prop worker set-up [facility] an admission today at [facility]'s [facility] with [facility] in [place]. prop worker faxed over the admit to hospice orders from Dr. Elyse DO to [facility] at fax number #[phone]. Social work to follow-up as needed.
== END 2025-01-22 12:43 | disposition home or self-care (01) ==
PROVIDERS: Emergency Provider Family Medicine; PCP Family Medicine
DX: K92.2 Gastrointestinal hemorrhage, unspecified (principal); F84.0 Autistic disorder; F79 Unspecified intellectual disabilities
CPT/HCPCS: 36415; 80053; 83605; 85025; 99284

== ENCOUNTER 2025-02-19 00:32 | Outpatient (CLI) | payer MEDICARE, MEDICAID, SELFPAY | END 2025-02-19 00:35 | disposition home or self-care (01) | LOC: AMB 03-04 08:53 | PROVIDERS: PCP Family Medicine; Visit Provider Family Medicine | DX: R53.1 Weakness (principal) | CPT/HCPCS: A0998 ==

== ENCOUNTER 2025-02-19 04:17 | Outpatient (CLI) | payer MEDICARE, MEDICAID, SELFPAY | END 2025-02-19 04:18 | disposition home or self-care (01) | PROVIDERS: PCP Family Medicine; Visit Provider Family Medicine | DX: R53.1 Weakness (principal) | CPT/HCPCS: A0998 ==